=== PATIENT | female | born 2000 | race American Indian/Alaskan Native ===

== ENCOUNTER 2021-11-11 20:30 | Outpatient (CLI) | payer SELFPAY ==
[2021-11-11] MEDS ORDERED: LACTATED RINGERS 500 ML IV ONE (20:52)
[2021-11-12 00:07] LABS: Bacteria,Urine 1+ /HPF (Negative); Bilirubin,Urine NEG (Negative); Blood,Urine NEG (Negative); Color,Urine Yellow (Yellow); Mucus,Urine FEW /HPF; Protein,Urine <15 mg/dL mg/dL (Negative); Urobilinogen,Urine < 2.0 mg/dL (<2.0)
[2021-11-12 00:36] VITALS: BP 131/69
== END 2021-11-12 00:07 | disposition home or self-care (01) ==
LOC: TRG 20:30 → APU 20:31 → TRG 11-12 00:07
PROVIDERS: ATTEND Obstetrics & Gynecology Gynecology
DX: O26.893 Other specified pregnancy related conditions, third trimester (principal); R10.30 Lower abdominal pain, unspecified; R10.2 Pelvic and perineal pain; Z3A.34 34 weeks gestation of pregnancy
CPT/HCPCS: 59025; 81001; 96360

== ENCOUNTER 2021-11-28 22:03 | Inpatient (IN) | payer SELFPAY ==
--- NOTE | 2021-11-29 01:05 | Ultrasound Report ---
ULTRASOUND OBSTETRIC LIMITED INDICATION / CLINICAL INFORMATION: Limited care. Clinical Gestational Age (GA) in weeks, days: 37, 2 TECHNIQUE: Transabdominal. COMPARISON: None available. FINDINGS: HEART RATE (beats per minute): 148 AMNIOTIC FLUID INDEX (cm) = 7.8 (normal = 7-24 cm) PRESENTATION: Cephalic. ADDITIONAL FINDINGS: Biparietal Diameter = 9.2 cm = 4 7, 2 weeks, days Head Circumference = 31.1 cm = 34, 5 weeks, days Abdominal Circumference = 31.7 cm = 35, 4 weeks, days Femur Length = 6.3 cm = 32, 5 weeks, days Average Ultrasound Age (AUA) = 35, 1 weeks, days Estimated weight 2550 g. IMPRESSION: 1. Single living fetus with estimated gestational age of 35 weeks 1 day. Estimated weight 2550 g. Signer Name: Charanjit Boswell II, MD Signed: 11/29/2021 1:01 AM Workstation Name: [id number]
[2021-11-29] MEDS ORDERED: TERBUTALINE 1 MG/1 ML INJ SUB-Q PRN (03:28)
[2021-11-29] MEDS ORDERED: METHYLERGONOVINE MALEATE 0.2 MG/ML VIAL IM PRN (03:28)
[2021-11-29] MEDS ORDERED: CARBOPROST TROMETHAMINE 250 MCG/1 ML INJ IM PRN (03:28)
[2021-11-29] MEDS ORDERED: OXYTOCIN 10 UNIT/1 ML INJ IM PRN (03:28)
[2021-11-29] MEDS ORDERED: BUTORPHANOL 2 MG/1 ML INJ IV PRN (03:28)
[2021-11-29] MEDS ORDERED: ACETAMINOPHEN 325 MG TAB PO PRN (03:28)
[2021-11-29] MEDS ORDERED: LOPERAMIDE 2 MG CAP PO PRN (03:28)
[2021-11-29] MEDS ORDERED: MINERAL OIL 30 ML ORAL LIQD PO PRN (03:28)
[2021-11-29] MEDS ORDERED: ePHEDrine SULFATE 50 MG/1 ML INJ IV PRN (03:28)
--- NOTE | 2021-11-29 03:46 | History and Physical Report ---
History of Present Illness Date of examination: 11/28/21 Date of admission: 12/26/2021 Chief complaint: Contractions History of present illness: 21 y/o at 37-3/7 weeks presents to OBT reporting irregular CTX. No VB or LOF. Good FM. She obtained care in [facility], and she arrived in [place] recently. She has a digital copy of her records. In OBT, SVE was 0.5 cm dilated. However, OB US revealed EFW in the 8th %-ile. As such, there was IUGR. She is admitted for IOL secondary to IUGR. Past History Past Medical History: no pertinent history Past Surgical History: no surgical history Family/Genetic History: none Social history: no significant social history - Obstetrical History Expected Date of Delivery: 12/16/21 Actual Gestation: 37 Week(s) 4 Day(s) : 1 Para: 0 Medications and Allergies Allergies Allergy/AdvReac Type Severity Reaction Status Date / Time No Known Allergies Allergy Verified 11/11/21 20:51 Home Medications Medication Instructions Recorded Confirmed Last Taken Type No Known Home Medications [No 11/29/21 11/29/21 Unknown History Reported Home Medications] Active Meds: Active Medications Acetaminophen (Acetaminophen 325 Mg Tab) 650 mg PO Q4H PRN PRN Reason: Pain, Mild (1-3) Butorphanol Tartrate (Butorphanol 2 Mg/1 Ml Inj) 1 mg IV Q2H PRN PRN Reason: Pain, Moderate(4-6) LABOR PAIN Carboprost Tromethamine (Carboprost Tromethamine 250 Mcg/1 Ml Inj) 250 mcg IM ONCE PRN PRN Reason: Uterine Bleeding Ephedrine Sulfate (Ephedrine Sulfate 50 Mg/1 Ml Inj) 10 mg IV Q2M PRN PRN Reason: Hypotension Fentanyl (Fentanyl 100 Mcg/2 Ml Inj) 100 mcg IV Q2H PRN PRN Reason: Pain,Severe (7-10) LABOR PAIN Lactated Ringer's (Lactated Ringers) 1,000 mls @ 125 mls/hr IV DIRECT KEVIN Loperamide HCl (Loperamide 2 Mg Cap) 2 mg PO ONCE PRN PRN Reason: give with Hemabate Methylergonovine Maleate (Methylergonovine Maleate 0.2 Mg/Ml Vial) 0.2 mg IM ON CE PRN PRN Reason: Uterine Bleeding Mineral Oil (Mineral Oil 30 Ml Oral Liqd) 30 ml PO QHS PRN PRN Reason: Constipation Misoprostol (Misoprostol 25 Mcg Tab) 50 mcg PO Q4H KEVIN Terbutaline Sulfate (Terbutaline 1 Mg/1 Ml Inj) 0.25 mg SUB-Q ONCE PRN PRN Reason: Hyperstimulation/Hypertonicity Review of Systems All systems: negative - Vital Signs Vital signs: Vital Signs Pulse BP 109 H 107/64 11/28/21 22:31 11/28/21 22:31 Temp Pulse Resp BP Pulse Ox 99.4 F 102 H 18 125/66 100 11/29/21 02:08 11/29/21 03:36 11/29/21 02:08 11/29/21 02:16 11/29/21 03:36 - Physical Exam Breasts: Positive: normal Cardiovascular: Regular rate Lungs: Positive: Normal air movement Abdomen: Positive: normal appearance Genitourinary (Female): Positive: normal external genitalia Vulva: both: normal Vagina: Positive: normal moisture Uterus: Positive: enlarged Adnexa: both: normal Anus/Rectum: Positive: normal perianal skin Extremities: Positive: normal Deep Tendon Reflex Grade: Normal +2 - Obstetrical FHR: category 1 Uterine Contraction Monitor Mode: External Cervical Dilatation: 0.5 Cervical Effacement Percentage: 0 station: -3 Uterine Contraction Pattern: Irregular Results All other labs normal. Ultrasound: report reviewed (OB US Limited= SLIUP. Vertex. EFW= 2550 g (8th %- ile). GERMAINE= 7.8 cm.) Assessment and Plan - Patient Problems (1) 37 weeks gestation of Current Visit: Yes Status: Acute Plan to address problem: care was in [facility]. GBS performed today in OBT. Tx w/ PCN if there are any risk factors per CDC MMWR 2010 recommendations. (2) SGA (small for gestational age), , affecting care of mother, antepartum Current Visit: Yes Status: Acute Plan to address problem: EFW= 8th %-ile. Etiology is unknown. Plan is IOL. (3) Encounter for induction of labor Current Visit: Yes Status: Acute Plan to address problem: IOL with Cook catheter +/- Cytotec.
[2021-11-29 03:57] LABS: Hematocrit 32.6 % (30.3-42.9); Hemoglobin 10.6 gm/dl (10.1-14.3); Mean Corpuscular HGB Conc 32 % (30-34); Mean Corpuscular Volume 80 fl (79-97); Platelet Count 370 K/mm3 (140-440); Red Cell Distribution Width 13.9 % (13.2-15.2)
[2021-11-29] MEDS: miSOPROStol 25 MCG TAB PO SCH ×2 (04:04→10:07)
[2021-11-29] MEDS: LACTATED RINGERS 1,000 ML IV SCH ×2 (08:02→20:42)
[2021-11-29] MEDS: fentaNYL 100 MCG/2 ML INJ IV PRN ×2 (08:26→21:33)
--- NOTE | 2021-11-29 10:32 | Event Note ---
Date: 11/29/21 MACO 12/17/21 by 10 week US done in [facility] Pt presented with contractions last night: cervix unfavorable for IOL, pt not in spontaneous labor US put EFW @8% In the third trimester US EFW can be +/- 2-3 weeks dates discrepancy Will remove Cook's Catheter US/BPP/GERMAINE ordered with Doppler studies. I find no indication for OB intervention at this time- Will reevaluate after all imaging results. Maternal/ well being reassuring overall. NO obvious maternal underlying condition to explain IUGR Continue to monitor Princess Parrish MD
--- NOTE | 2021-11-29 10:46 | Event Note ---
Date: 11/29/21 cervix 4-5 cm after removal of Cook's Catheter pt has received multiple dosed of cytotec will plan for US to confirm placental presentation and continue IOL per Dr Barragan's initial plan of care. Princess Parrish MD
--- NOTE | 2021-11-29 10:49 | Event Note ---
Date: 11/29/21 Cooks balloon deflated and removed. SVE 4.5/50/-4. Small amount of bloody show noted. US ordered for location of placenta. Consulted with Dr. Parrish re: this patient.
--- NOTE | 2021-11-29 11:49 | Ultrasound Report ---
ULTRASOUND OBSTETRIC LIMITED INDICATION / CLINICAL INFORMATION: Location of placenta. TECHNIQUE: Transabdominal ultrasound imaging. COMPARISON: None available. FINDINGS: HEART RATE (beats per minute): 145 AMNIOTIC FLUID INDEX (cm) = not measured PRESENTATION: Cephalic. ADDITIONAL FINDINGS: The placenta is fundal, grade 1. No subplacental collection. IMPRESSION: Fundal placenta, grade 1. Signer Name: José Miguel Schwarz Jr, MD Signed: 11/29/2021 11:44 AM Workstation Name: [id number]
[2021-11-29] MEDS ORDERED: AMPICILLIN/NS 2 GM/100 ML 2 GM/100 ML BAG IV ONE (13:00)
--- NOTE | 2021-11-29 16:37 | Event Note ---
Date: 11/29/21 SVE /-3
[2021-11-29] MEDS ORDERED: OXYTOCIN DRIP 30 UNITS/500 ML BAG IV SCH (17:00)
[2021-11-29] MEDS: AMPICILLIN/NS 1 GM/50 ML 1 GM/50 ML BAG IV SCH ×2 (19:17→21:26)
--- NOTE | 2021-11-29 20:01 | Event Note ---
Date: 11/29/21 Dr. Parrish came and checked patient and states cervix is unchanged; Dr. Parrish orders to stop Pitocin and allow patient to eat and shower. She recommends cytotec when contractions have resolved.
--- NOTE | 2021-11-29 20:03 | Progress Note ---
Subjective - Subjective Date of service: 11/29/21 Interval history: comfortable at bedside limited interaction, blunted affect Attempted AROM(pt discomfort a challenge): cervix 4cm/long/-4 unfavorable cervix, dc pitocin with plan for cytotoec encourage early epidural: will plan AROM when more comfortable. FHT Cat 1 Maternal/ well being reassuring at bedside Princess Parrish MD Objective - Vital Signs Vital Signs: Vital Signs - 12hr 11/29/21 11/29/21 11/29/21 08:00 08:05 08:10 Temperature Pulse Rate 104 H 108 H 104 H Respiratory Rate Blood Pressure Blood Pressure [Right] O2 Sat by Pulse 100 98 99 Oximetry O2 Sat by Pulse Oximetry [ Bilateral Throughout] O2 Sat by Pulse Oximetry [ Throughout] 11/29/21 11/29/21 11/29/21 08:15 08:20 08:25 Temperature Pulse Rate 101 H 98 H 103 H Respiratory Rate Blood Pressure Blood Pressure [Right] O2 Sat by Pulse 99 98 100 Oximetry O2 Sat by Pulse Oximetry [ Bilateral Throughout] O2 Sat by Pulse Oximetry [ Throughout] 11/29/21 11/29/21 11/29/21 08:26 08:30 08:35 Temperature Pulse Rate 104 H 101 H Respiratory 16 Rate Blood Pressure Blood Pressure [Right] O2 Sat by Pulse 98 97 Oximetry O2 Sat by Pulse Oximetry [ Bilateral Throughout] O2 Sat by Pulse Oximetry [ Throughout] 11/29/21 11/29/21 11/29/21 08:40 08:45 08:50 Temperature Pulse Rate 109 H 101 H 104 H Respiratory Rate Blood Pressure Blood Pressure [Right] O2 Sat by Pulse 99 99 98 Oximetry O2 Sat by Pulse Oximetry [ Bilateral Throughout] O2 Sat by Pulse Oximetry [ Throughout] 11/29/21 11/29/21 11/29/21 08:55 09:00 09:05 Temperature Pulse Rate 103 H 104 H 107 H Respiratory Rate Blood Pressure Blood Pressure [Right] O2 Sat by Pulse 98 99 98 Oximetry O2 Sat by Pulse Oximetry [ Bilateral Throughout] O2 Sat by Pulse Oximetry [ Throughout] 11/29/21 11/29/21 11/29/21 09:10 09:15 09:20 Temperature Pulse Rate 106 H 104 H 107 H Respiratory Rate Blood Pressure Blood Pressure [Right] O2 Sat by Pulse 98 99 97 Oximetry O2 Sat by Pulse Oximetry [ Bilateral Throughout] O2 Sat by Pulse Oximetry [ Throughout] 11/29/21 11/29/21 11/29/21 09:25 09:30 09:35 Temperature Pulse Rate 103 H 102 H 105 H Respiratory Rate Blood Pressure Blood Pressure [Right] O2 Sat by Pulse 99 97 98 Oximetry O2 Sat by Pulse Oximetry [ Bilateral Throughout] O2 Sat by Pulse Oximetry [ Throughout] 11/29/21 11/29/21 11/29/21 09:40 09:45 09:50 Temperature Pulse Rate 104 H 105 H 105 H Respiratory Rate Blood Pressure Blood Pressure [Right] O2 Sat by Pulse 98 98 98 Oximetry O2 Sat by Pulse Oximetry [ Bilateral Throughout] O2 Sat by Pulse Oximetry [ Throughout] 11/29/21 11/29/21 11/29/21 09:55 10:00 10:05 Temperature Pulse Rate 109 H 108 H 109 H Respiratory Rate Blood Pressure Blood Pressure [Right] O2 Sat by Pulse 98 98 98 Oximetry O2 Sat by Pulse Oximetry [ Bilateral Throughout] O2 Sat by Pulse Oximetry [ Throughout] 11/29/21 11/29/21 11/29/21 10:10 10:15 10:20 Temperature Pulse Rate 108 H 105 H 106 H Respiratory Rate Blood Pressure Blood Pressure [Right] O2 Sat by Pulse 99 98 99 Oximetry O2 Sat by Pulse Oximetry [ Bilateral Throughout] O2 Sat by Pulse Oximetry [ Throughout] 11/29/21 11/29/21 11/29/21 10:25 10:30 10:35 Temperature Pulse Rate 106 H 103 H 99 H Respiratory Rate Blood Pressure Blood Pressure [Right] O2 Sat by Pulse 99 99 100 Oximetry O2 Sat by Pulse Oximetry [ Bilateral Throughout] O2 Sat by Pulse Oximetry [ Throughout] 11/29/21 11/29/21 11/29/21 10:44 10:49 10:54 Temperature Pulse Rate 109 H 101 H 102 H Respiratory Rate Blood Pressure Blood Pressure [Right] O2 Sat by Pulse 97 99 99 Oximetry O2 Sat by Pulse Oximetry [ Bilateral Throughout] O2 Sat by Pulse Oximetry [ Throughout] 11/29/21 11/29/21 11/29/21 10:59 11:04 11:09 Temperature Pulse Rate 104 H 105 H 109 H Respiratory Rate Blood Pressure Blood Pressure [Right] O2 Sat by Pulse 100 99 99 Oximetry O2 Sat by Pulse Oximetry [ Bilateral Throughout] O2 Sat by Pulse Oximetry [ Throughout] 11/29/21 11/29/21 11/29/21 11:14 11:19 11:24 Temperature Pulse Rate 103 H 98 H 104 H Respiratory Rate Blood Pressure Blood Pressure [Right] O2 Sat by Pulse 100 99 100 Oximetry O2 Sat by Pulse Oximetry [ Bilateral Throughout] O2 Sat by Pulse Oximetry [ Throughout] 11/29/21 11/29/21 11/29/21 11:59 12:04 12:09 Temperature Pulse Rate 109 H 102 H 101 H Respiratory Rate Blood Pressure Blood Pressure [Right] O2 Sat by Pulse 99 100 99 Oximetry O2 Sat by Pulse Oximetry [ Bilateral Throughout] O2 Sat by Pulse Oximetry [ Throughout] 11/29/21 11/29/21 11/29/21 12:14 12:19 12:24 Temperature Pulse Rate 104 H 100 H 99 H Respiratory Rate Blood Pressure Blood Pressure [Right] O2 Sat by Pulse 99 98 98 Oximetry O2 Sat by Pulse Oximetry [ Bilateral Throughout] O2 Sat by Pulse Oximetry [ Throughout] 11/29/21 11/29/21 11/29/21 12:29 12:34 12:39 Temperature Pulse Rate 101 H 102 H 103 H Respiratory Rate Blood Pressure Blood Pressure [Right] O2 Sat by Pulse 98 97 98 Oximetry O2 Sat by Pulse Oximetry [ Bilateral Throughout] O2 Sat by Pulse Oximetry [ Throughout] 11/29/21 11/29/21 11/29/21 12:44 12:49 12:54 Temperature Pulse Rate 109 H 106 H 109 H Respiratory Rate Blood Pressure Blood Pressure [Right] O2 Sat by Pulse 98 98 98 Oximetry O2 Sat by Pulse Oximetry [ Bilateral Throughout] O2 Sat by Pulse Oximetry [ Throughout] 11/29/21 11/29/21 11/29/21 12:59 13:04 13:09 Temperature Pulse Rate 105 H 104 H 114 H Respiratory Rate Blood Pressure Blood Pressure [Right] O2 Sat by Pulse 99 100 99 Oximetry O2 Sat by Pulse Oximetry [ Bilateral Throughout] O2 Sat by Pulse Oximetry [ Throughout] 11/29/21 11/29/21 11/29/21 13:14 13:19 13:24 Temperature Pulse Rate 101 H 104 H 105 H Respiratory Rate Blood Pressure Blood Pressure [Right] O2 Sat by Pulse 99 97 98 Oximetry O2 Sat by Pulse Oximetry [ Bilateral Throughout] O2 Sat by Pulse Oximetry [ Throughout] 11/29/21 11/29/21 11/29/21 13:29 13:34 13:39 Temperature Pulse Rate 108 H 98 H 96 H Respiratory Rate Blood Pressure Blood Pressure [Right] O2 Sat by Pulse 100 100 100 Oximetry O2 Sat by Pulse Oximetry [ Bilateral Throughout] O2 Sat by Pulse Oximetry [ Throughout] 11/29/21 11/29/21 11/29/21 13:40 13:44 13:49 Temperature Pulse Rate 92 H 102 H 102 H Respiratory Rate Blood Pressure 131/62 Blood Pressure [Right] O2 Sat by Pulse 99 100 Oximetry O2 Sat by Pulse Oximetry [ Bilateral Throughout] O2 Sat by Pulse Oximetry [ Throughout] 11/29/21 11/29/21 11/29/21 13:54 13:59 14:04 Temperature Pulse Rate 104 H 105 H 101 H Respiratory Rate Blood Pressure Blood Pressure [Right] O2 Sat by Pulse 99 100 98 Oximetry O2 Sat by Pulse Oximetry [ Bilateral Throughout] O2 Sat by Pulse Oximetry [ Throughout] 11/29/21 11/29/21 11/29/21 14:09 14:14 14:19 Temperature Pulse Rate 101 H 104 H 103 H Respiratory Rate Blood Pressure Blood Pressure [Right] O2 Sat by Pulse 99 98 98 Oximetry O2 Sat by Pulse Oximetry [ Bilateral Throughout] O2 Sat by Pulse Oximetry [ Throughout] 11/29/21 11/29/21 11/29/21 14:24 14:29 14:34 Temperature Pulse Rate 100 H 100 H 104 H Respiratory Rate Blood Pressure Blood Pressure [Right] O2 Sat by Pulse 100 100 99 Oximetry O2 Sat by Pulse Oximetry [ Bilateral Throughout] O2 Sat by Pulse Oximetry [ Throughout] 11/29/21 11/29/21 11/29/21 14:39 14:44 14:49 Temperature Pulse Rate 102 H 103 H 103 H Respiratory Rate Blood Pressure Blood Pressure [Right] O2 Sat by Pulse 98 99 99 Oximetry O2 Sat by Pulse Oximetry [ Bilateral Throughout] O2 Sat by Pulse Oximetry [ Throughout] 11/29/21 11/29/21 11/29/21 14:54 14:59 15:04 Temperature Pulse Rate 101 H 100 H 99 H Respiratory Rate Blood Pressure Blood Pressure [Right] O2 Sat by Pulse 99 100 100 Oximetry O2 Sat by Pulse Oximetry [ Bilateral Throughout] O2 Sat by Pulse Oximetry [ Throughout] 11/29/21 11/29/21 11/29/21 15:09 15:14 15:19 Temperature Pulse Rate 101 H 101 H 102 H Respiratory Rate Blood Pressure Blood Pressure [Right] O2 Sat by Pulse 99 99 100 Oximetry O2 Sat by Pulse Oximetry [ Bilateral Throughout] O2 Sat by Pulse Oximetry [ Throughout] 11/29/21 11/29/21 11/29/21 15:24 15:29 15:34 Temperature Pulse Rate 99 H 98 H 97 H Respiratory Rate Blood Pressure Blood Pressure [Right] O2 Sat by Pulse 97 99 99 Oximetry O2 Sat by Pulse Oximetry [ Bilateral Throughout] O2 Sat by Pulse Oximetry [ Throughout] 11/29/21 11/29/21 11/29/21 15:39 15:44 15:49 Temperature Pulse Rate 93 H 93 H 98 H Respiratory Rate Blood Pressure Blood Pressure [Right] O2 Sat by Pulse 100 100 100 Oximetry O2 Sat by Pulse Oximetry [ Bilateral Throughout] O2 Sat by Pulse Oximetry [ Throughout] 11/29/21 11/29/21 11/29/21 15:54 15:59 16:04 Temperature Pulse Rate 94 H 99 H 91 H Respiratory Rate Blood Pressure Blood Pressure [Right] O2 Sat by Pulse 100 100 99 Oximetry O2 Sat by Pulse Oximetry [ Bilateral Throughout] O2 Sat by Pulse Oximetry [ Throughout] 11/29/21 11/29/21 11/29/21 16:09 16:14 16:19 Temperature Pulse Rate 98 H 98 H 101 H Respiratory Rate Blood Pressure Blood Pressure [Right] O2 Sat by Pulse 100 99 98 Oximetry O2 Sat by Pulse Oximetry [ Bilateral Throughout] O2 Sat by Pulse Oximetry [ Throughout] 11/29/21 11/29/21 11/29/21 16:24 16:29 16:34 Temperature Pulse Rate 97 H 98 H 100 H Respiratory Rate Blood Pressure Blood Pressure [Right] O2 Sat by Pulse 100 100 99 Oximetry O2 Sat by Pulse Oximetry [ Bilateral Throughout] O2 Sat by Pulse Oximetry [ Throughout] 11/29/21 11/29/21 11/29/21 16:39 16:44 16:49 Temperature Pulse Rate 101 H 102 H 100 H Respiratory Rate Blood Pressure Blood Pressure [Right] O2 Sat by Pulse 99 98 99 Oximetry O2 Sat by Pulse Oximetry [ Bilateral Throughout] O2 Sat by Pulse Oximetry [ Throughout] 11/29/21 11/29/21 11/29/21 16:54 16:59 17:04 Temperature Pulse Rate 106 H 107 H 104 H Respiratory Rate Blood Pressure 105/56 Blood Pressure [Right] O2 Sat by Pulse 99 99 99 Oximetry O2 Sat by Pulse Oximetry [ Bilateral Throughout] O2 Sat by Pulse Oximetry [ Throughout] 11/29/21 11/29/21 11/29/21 17:09 17:14 17:19 Temperature Pulse Rate 102 H 106 H 103 H Respiratory Rate Blood Pressure Blood Pressure [Right] O2 Sat by Pulse 98 99 99 Oximetry O2 Sat by Pulse Oximetry [ Bilateral Throughout] O2 Sat by Pulse Oximetry [ Throughout] 11/29/21 11/29/21 11/29/21 17:24 17:29 17:34 Temperature Pulse Rate 103 H 104 H 111 H Respiratory Rate Blood Pressure 107/56 Blood Pressure [Right] O2 Sat by Pulse 99 99 99 Oximetry O2 Sat by Pulse Oximetry [ Bilateral Throughout] O2 Sat by Pulse Oximetry [ Throughout] 11/29/21 11/29/21 11/29/21 17:39 17:44 17:49 Temperature Pulse Rate 107 H 105 H 109 H Respiratory Rate Blood Pressure Blood Pressure [Right] O2 Sat by Pulse 99 99 100 Oximetry O2 Sat by Pulse Oximetry [ Bilateral Throughout] O2 Sat by Pulse Oximetry [ Throughout] 11/29/21 11/29/21 11/29/21 17:54 17:59 18:04 Temperature Pulse Rate 110 H 107 H 110 H Respiratory Rate Blood Pressure 127/78 Blood Pressure [Right] O2 Sat by Pulse 99 100 99 Oximetry O2 Sat by Pulse Oximetry [ Bilateral Throughout] O2 Sat by Pulse Oximetry [ Throughout] 11/29/21 11/29/21 11/29/21 18:09 18:14 18:19 Temperature Pulse Rate 101 H 104 H 105 H Respiratory Rate Blood Pressure Blood Pressure [Right] O2 Sat by Pulse 99 100 99 Oximetry O2 Sat by Pulse Oximetry [ Bilateral Throughout] O2 Sat by Pulse Oximetry [ Throughout] 11/29/21 11/29/21 11/29/21 18:24 18:29 18:59 Temperature Pulse Rate 104 H 104 H 105 H Respiratory Rate Blood Pressure 107/57 Blood Pressure [Right] O2 Sat by Pulse 99 99 98 Oximetry O2 Sat by Pulse Oximetry [ Bilateral Throughout] O2 Sat by Pulse Oximetry [ Throughout] 11/29/21 11/29/21 11/29/21 19:04 19:07 19:09 Temperature 97.7 F Pulse Rate 94 H 97 H 96 H Respiratory 17 Rate Blood Pressure Blood Pressure 110/66 [Right] O2 Sat by Pulse 100 100 99 Oximetry O2 Sat by Pulse 99 Oximetry [ Bilateral Throughout] O2 Sat by Pulse 99 Oximetry [ Throughout] 11/29/21 11/29/21 11/29/21 19:11 19:14 19:19 Temperature Pulse Rate 94 H 93 H 95 H Respiratory Rate Blood Pressure 110/66 Blood Pressure [Right] O2 Sat by Pulse 100 100 Oximetry O2 Sat by Pulse Oximetry [ Bilateral Throughout] O2 Sat by Pulse Oximetry [ Throughout] 11/29/21 11/29/21 11/29/21 19:24 19:29 19:34 Temperature Pulse Rate 98 H 99 H 100 H Respiratory Rate Blood Pressure 103/65 Blood Pressure [Right] O2 Sat by Pulse 100 100 100 Oximetry O2 Sat by Pulse Oximetry [ Bilateral Throughout] O2 Sat by Pulse Oximetry [ Throughout] 11/29/21 11/29/21 11/29/21 19:39 19:44 19:49 Temperature Pulse Rate 101 H 102 H 100 H Respiratory Rate Blood Pressure Blood Pressure [Right] O2 Sat by Pulse 100 100 100 Oximetry O2 Sat by Pulse Oximetry [ Bilateral Throughout] O2 Sat by Pulse Oximetry [ Throughout] 11/29/21 19:54 Temperature Pulse Rate 98 H Respiratory Rate Blood Pressure Blood Pressure [Right] O2 Sat by Pulse 100 Oximetry O2 Sat by Pulse Oximetry [ Bilateral Throughout] O2 Sat by Pulse Oximetry [ Throughout] - Labs Labs: Abnormal Labs 11/29/21 02:30 MCH 26 L Laboratory Results - last 24 hr 11/29/21 11/29/21 11/29/21 02:30 02:30 09:15 WBC 9.7 RBC 4.10 Hgb 10.6 Hct 32.6 MCV 80 MCH 26 L MCHC 32 RDW 13.9 Plt Count 370 SARS-CoV-2 (PCR) Negative Blood Type O POSITIVE Antibody Screen Negative
[2021-11-30] MEDS: AMPICILLIN/NS 1 GM/50 ML 1 GM/50 ML BAG IV SCH ×2 (01:32→05:40)
[2021-11-30] MEDS: miSOPROStol 25 MCG TAB PO SCH ×2 (03:08→03:17)
[2021-11-30 05:45] LABS: Bacteria,Urine 2+ /HPF (Negative); Bilirubin,Urine NEG (Negative); Blood,Urine SM (Negative); Color,Urine Straw (Yellow); Protein,Urine <15 mg/dL mg/dL (Negative); Urobilinogen,Urine < 2.0 mg/dL (<2.0)
[2021-11-30] MEDS: LACTATED RINGERS 1,000 ML IV SCH (06:16)
--- NOTE | 2021-11-30 09:23 | Progress Note ---
Subjective - Subjective Date of service: 11/30/21 Interval history: FHT Cat 1 TOCO: 2-3 minutes hungry, wants to eat plan for breakfast and the oxytocin per protocol Princess Parrish MD Objective - Vital Signs Vital Signs: Vital Signs - 12hr 11/29/21 11/29/21 11/29/21 21:22 21:27 21:32 Temperature Pulse Rate 101 H 103 H 96 H Respiratory Rate Blood Pressure O2 Sat by Pulse 99 100 100 Oximetry O2 Sat by Pulse Oximetry [ Bilateral Throughout] O2 Sat by Pulse Oximetry [ Throughout] 11/29/21 11/29/21 11/29/21 21:37 21:42 21:47 Temperature Pulse Rate 101 H 94 H 92 H Respiratory Rate Blood Pressure O2 Sat by Pulse 98 98 98 Oximetry O2 Sat by Pulse Oximetry [ Bilateral Throughout] O2 Sat by Pulse Oximetry [ Throughout] 11/29/21 11/29/21 11/29/21 21:52 21:57 22:02 Temperature Pulse Rate 107 H 93 H 95 H Respiratory Rate Blood Pressure O2 Sat by Pulse 99 98 98 Oximetry O2 Sat by Pulse Oximetry [ Bilateral Throughout] O2 Sat by Pulse Oximetry [ Throughout] 11/29/21 11/29/21 11/29/21 22:07 22:12 22:17 Temperature Pulse Rate 94 H 95 H 98 H Respiratory Rate Blood Pressure O2 Sat by Pulse 97 98 98 Oximetry O2 Sat by Pulse Oximetry [ Bilateral Throughout] O2 Sat by Pulse Oximetry [ Throughout] 11/29/21 11/29/21 11/29/21 22:22 22:27 22:32 Temperature Pulse Rate 96 H 95 H 97 H Respiratory Rate Blood Pressure O2 Sat by Pulse 98 98 99 Oximetry O2 Sat by Pulse Oximetry [ Bilateral Throughout] O2 Sat by Pulse Oximetry [ Throughout] 11/29/21 11/29/21 11/29/21 22:37 22:42 22:47 Temperature Pulse Rate 99 H 115 H 96 H Respiratory Rate Blood Pressure O2 Sat by Pulse 99 99 98 Oximetry O2 Sat by Pulse Oximetry [ Bilateral Throughout] O2 Sat by Pulse Oximetry [ Throughout] 11/29/21 11/29/21 11/29/21 22:52 22:57 23:02 Temperature Pulse Rate 98 H 96 H 110 H Respiratory Rate Blood Pressure O2 Sat by Pulse 97 98 99 Oximetry O2 Sat by Pulse Oximetry [ Bilateral Throughout] O2 Sat by Pulse Oximetry [ Throughout] 11/29/21 11/29/21 11/29/21 23:07 23:12 23:13 Temperature 98.3 F Pulse Rate 96 H 99 H Respiratory 17 Rate Blood Pressure 115/55 O2 Sat by Pulse 99 99 Oximetry O2 Sat by Pulse Oximetry [ Bilateral Throughout] O2 Sat by Pulse Oximetry [ Throughout] 11/29/21 11/29/21 11/29/21 23:17 23:22 23:27 Temperature Pulse Rate 95 H 95 H 95 H Respiratory Rate Blood Pressure O2 Sat by Pulse 98 99 98 Oximetry O2 Sat by Pulse Oximetry [ Bilateral Throughout] O2 Sat by Pulse Oximetry [ Throughout] 11/29/21 11/29/21 11/29/21 23:32 23:37 23:42 Temperature Pulse Rate 95 H 94 H 96 H Respiratory Rate Blood Pressure O2 Sat by Pulse 98 99 99 Oximetry O2 Sat by Pulse Oximetry [ Bilateral Throughout] O2 Sat by Pulse Oximetry [ Throughout] 11/29/21 11/29/21 11/29/21 23:47 23:52 23:57 Temperature Pulse Rate 95 H 97 H 98 H Respiratory Rate Blood Pressure O2 Sat by Pulse 99 100 99 Oximetry O2 Sat by Pulse Oximetry [ Bilateral Throughout] O2 Sat by Pulse Oximetry [ Throughout] 11/30/21 11/30/21 11/30/21 00:02 00:07 00:12 Temperature Pulse Rate 101 H 95 H 100 H Respiratory Rate Blood Pressure O2 Sat by Pulse 100 99 99 Oximetry O2 Sat by Pulse Oximetry [ Bilateral Throughout] O2 Sat by Pulse Oximetry [ Throughout] 11/30/21 11/30/21 11/30/21 00:17 00:22 00:27 Temperature Pulse Rate 100 H 103 H 94 H Respiratory Rate Blood Pressure O2 Sat by Pulse 98 100 99 Oximetry O2 Sat by Pulse Oximetry [ Bilateral Throughout] O2 Sat by Pulse Oximetry [ Throughout] 11/30/21 11/30/21 11/30/21 00:32 00:37 00:42 Temperature Pulse Rate 92 H 93 H 97 H Respiratory Rate Blood Pressure O2 Sat by Pulse 100 98 99 Oximetry O2 Sat by Pulse Oximetry [ Bilateral Throughout] O2 Sat by Pulse Oximetry [ Throughout] 11/30/21 11/30/21 11/30/21 00:47 00:52 00:57 Temperature Pulse Rate 95 H 114 H 95 H Respiratory Rate Blood Pressure O2 Sat by Pulse 99 99 99 Oximetry O2 Sat by Pulse Oximetry [ Bilateral Throughout] O2 Sat by Pulse Oximetry [ Throughout] 11/30/21 11/30/21 11/30/21 01:02 01:07 01:12 Temperature Pulse Rate 89 92 H 95 H Respiratory Rate Blood Pressure O2 Sat by Pulse 98 99 99 Oximetry O2 Sat by Pulse Oximetry [ Bilateral Throughout] O2 Sat by Pulse Oximetry [ Throughout] 11/30/21 11/30/21 11/30/21 01:17 01:22 01:27 Temperature Pulse Rate 96 H 96 H 97 H Respiratory Rate Blood Pressure O2 Sat by Pulse 99 98 99 Oximetry O2 Sat by Pulse Oximetry [ Bilateral Throughout] O2 Sat by Pulse Oximetry [ Throughout] 11/30/21 11/30/21 11/30/21 01:32 01:37 01:42 Temperature Pulse Rate 94 H 98 H 97 H Respiratory Rate Blood Pressure O2 Sat by Pulse 99 99 99 Oximetry O2 Sat by Pulse Oximetry [ Bilateral Throughout] O2 Sat by Pulse Oximetry [ Throughout] 11/30/21 11/30/21 11/30/21 01:47 01:52 01:57 Temperature Pulse Rate 98 H 107 H 92 H Respiratory Rate Blood Pressure O2 Sat by Pulse 99 99 99 Oximetry O2 Sat by Pulse Oximetry [ Bilateral Throughout] O2 Sat by Pulse Oximetry [ Throughout] 11/30/21 11/30/21 11/30/21 02:02 02:07 02:12 Temperature Pulse Rate 97 H 96 H 98 H Respiratory Rate Blood Pressure O2 Sat by Pulse 99 99 99 Oximetry O2 Sat by Pulse Oximetry [ Bilateral Throughout] O2 Sat by Pulse Oximetry [ Throughout] 11/30/21 11/30/21 11/30/21 02:17 02:22 02:27 Temperature Pulse Rate 98 H 114 H 99 H Respiratory Rate Blood Pressure O2 Sat by Pulse 98 100 98 Oximetry O2 Sat by Pulse Oximetry [ Bilateral Throughout] O2 Sat by Pulse Oximetry [ Throughout] 11/30/21 11/30/21 11/30/21 02:32 02:37 02:42 Temperature Pulse Rate 101 H 98 H 98 H Respiratory Rate Blood Pressure O2 Sat by Pulse 100 99 99 Oximetry O2 Sat by Pulse Oximetry [ Bilateral Throughout] O2 Sat by Pulse Oximetry [ Throughout] 11/30/21 11/30/21 11/30/21 02:47 02:52 02:57 Temperature Pulse Rate 99 H 101 H 98 H Respiratory Rate Blood Pressure O2 Sat by Pulse 99 99 98 Oximetry O2 Sat by Pulse Oximetry [ Bilateral Throughout] O2 Sat by Pulse Oximetry [ Throughout] 11/30/21 11/30/21 11/30/21 03:02 03:07 03:12 Temperature Pulse Rate 98 H 100 H 93 H Respiratory Rate Blood Pressure O2 Sat by Pulse 98 98 99 Oximetry O2 Sat by Pulse Oximetry [ Bilateral Throughout] O2 Sat by Pulse Oximetry [ Throughout] 11/30/21 11/30/21 11/30/21 03:17 03:18 03:22 Temperature 98.6 F Pulse Rate 108 H 98 H 98 H Respiratory 16 Rate Blood Pressure 136/60 O2 Sat by Pulse 99 98 Oximetry O2 Sat by Pulse Oximetry [ Bilateral Throughout] O2 Sat by Pulse Oximetry [ Throughout] 11/30/21 11/30/21 11/30/21 03:27 03:32 03:37 Temperature Pulse Rate 99 H 98 H 98 H Respiratory Rate Blood Pressure O2 Sat by Pulse 98 99 98 Oximetry O2 Sat by Pulse Oximetry [ Bilateral Throughout] O2 Sat by Pulse Oximetry [ Throughout] 11/30/21 11/30/21 11/30/21 03:42 03:47 03:52 Temperature Pulse Rate 95 H 98 H 97 H Respiratory Rate Blood Pressure O2 Sat by Pulse 97 98 98 Oximetry O2 Sat by Pulse Oximetry [ Bilateral Throughout] O2 Sat by Pulse Oximetry [ Throughout] 11/30/21 11/30/21 11/30/21 03:57 04:02 04:07 Temperature Pulse Rate 97 H 98 H 98 H Respiratory Rate Blood Pressure O2 Sat by Pulse 98 98 98 Oximetry O2 Sat by Pulse Oximetry [ Bilateral Throughout] O2 Sat by Pulse Oximetry [ Throughout] 11/30/21 11/30/21 11/30/21 04:12 04:17 04:22 Temperature Pulse Rate 95 H 101 H 99 H Respiratory Rate Blood Pressure O2 Sat by Pulse 98 98 98 Oximetry O2 Sat by Pulse Oximetry [ Bilateral Throughout] O2 Sat by Pulse Oximetry [ Throughout] 11/30/21 11/30/21 11/30/21 04:27 04:32 04:37 Temperature Pulse Rate 106 H 102 H 92 H Respiratory Rate Blood Pressure O2 Sat by Pulse 97 98 99 Oximetry O2 Sat by Pulse Oximetry [ Bilateral Throughout] O2 Sat by Pulse Oximetry [ Throughout] 11/30/21 11/30/21 11/30/21 04:42 04:47 04:52 Temperature Pulse Rate 101 H 99 H 95 H Respiratory Rate Blood Pressure O2 Sat by Pulse 99 98 98 Oximetry O2 Sat by Pulse Oximetry [ Bilateral Throughout] O2 Sat by Pulse Oximetry [ Throughout] 11/30/21 11/30/21 11/30/21 04:57 05:02 05:07 Temperature Pulse Rate 92 H 99 H 101 H Respiratory Rate Blood Pressure O2 Sat by Pulse 99 98 98 Oximetry O2 Sat by Pulse Oximetry [ Bilateral Throughout] O2 Sat by Pulse Oximetry [ Throughout] 11/30/21 11/30/21 11/30/21 05:12 05:20 05:25 Temperature Pulse Rate 100 H 95 H 89 Respiratory Rate Blood Pressure O2 Sat by Pulse 98 100 98 Oximetry O2 Sat by Pulse Oximetry [ Bilateral Throughout] O2 Sat by Pulse Oximetry [ Throughout] 11/30/21 11/30/21 11/30/21 05:30 05:35 05:40 Temperature Pulse Rate 91 H 98 H 91 H Respiratory Rate Blood Pressure O2 Sat by Pulse 99 100 99 Oximetry O2 Sat by Pulse Oximetry [ Bilateral Throughout] O2 Sat by Pulse Oximetry [ Throughout] 11/30/21 11/30/21 11/30/21 05:45 05:50 05:55 Temperature Pulse Rate 96 H 89 93 H Respiratory Rate Blood Pressure O2 Sat by Pulse 99 99 97 Oximetry O2 Sat by Pulse Oximetry [ Bilateral Throughout] O2 Sat by Pulse Oximetry [ Throughout] 11/30/21 11/30/21 11/30/21 06:00 06:05 06:10 Temperature Pulse Rate 94 H 90 90 Respiratory Rate Blood Pressure O2 Sat by Pulse 99 99 99 Oximetry O2 Sat by Pulse Oximetry [ Bilateral Throughout] O2 Sat by Pulse Oximetry [ Throughout] 11/30/21 11/30/21 11/30/21 06:15 06:20 06:25 Temperature Pulse Rate 101 H 92 H 95 H Respiratory Rate Blood Pressure O2 Sat by Pulse 99 99 99 Oximetry O2 Sat by Pulse Oximetry [ Bilateral Throughout] O2 Sat by Pulse Oximetry [ Throughout] 11/30/21 11/30/21 11/30/21 06:30 06:35 06:40 Temperature Pulse Rate 86 90 96 H Respiratory Rate Blood Pressure O2 Sat by Pulse 99 99 98 Oximetry O2 Sat by Pulse Oximetry [ Bilateral Throughout] O2 Sat by Pulse Oximetry [ Throughout] 11/30/21 11/30/21 11/30/21 06:45 06:50 06:55 Temperature Pulse Rate 92 H 92 H 88 Respiratory Rate Blood Pressure O2 Sat by Pulse 99 99 99 Oximetry O2 Sat by Pulse Oximetry [ Bilateral Throughout] O2 Sat by Pulse Oximetry [ Throughout] 11/30/21 11/30/21 11/30/21 07:00 07:05 07:10 Temperature Pulse Rate 91 H 100 H 88 Respiratory Rate Blood Pressure O2 Sat by Pulse 99 99 99 Oximetry O2 Sat by Pulse Oximetry [ Bilateral Throughout] O2 Sat by Pulse Oximetry [ Throughout] 11/30/21 11/30/21 11/30/21 07:15 07:20 07:25 Temperature Pulse Rate 92 H 97 H 91 H Respiratory Rate Blood Pressure O2 Sat by Pulse 100 100 99 Oximetry O2 Sat by Pulse Oximetry [ Bilateral Throughout] O2 Sat by Pulse Oximetry [ Throughout] 11/30/21 11/30/21 11/30/21 07:30 07:35 07:40 Temperature Pulse Rate 94 H 94 H 95 H Respiratory Rate Blood Pressure O2 Sat by Pulse 100 99 99 Oximetry O2 Sat by Pulse Oximetry [ Bilateral Throughout] O2 Sat by Pulse Oximetry [ Throughout] 11/30/21 11/30/21 11/30/21 07:45 07:50 07:55 Temperature Pulse Rate 97 H 99 H 93 H Respiratory Rate Blood Pressure O2 Sat by Pulse 99 99 98 Oximetry O2 Sat by Pulse Oximetry [ Bilateral Throughout] O2 Sat by Pulse Oximetry [ Throughout] 11/30/21 11/30/21 11/30/21 08:00 08:05 08:10 Temperature 97.8 F Pulse Rate 100 H 98 H 93 H Respiratory Rate Blood Pressure O2 Sat by Pulse 99 99 99 Oximetry O2 Sat by Pulse Oximetry [ Bilateral Throughout] O2 Sat by Pulse Oximetry [ Throughout] 11/30/21 11/30/21 11/30/21 08:15 08:20 08:25 Temperature Pulse Rate 92 H 96 H 97 H Respiratory Rate Blood Pressure O2 Sat by Pulse 100 99 99 Oximetry O2 Sat by Pulse Oximetry [ Bilateral Throughout] O2 Sat by Pulse Oximetry [ Throughout] 11/30/21 11/30/21 11/30/21 08:49 08:51 08:56 Temperature Pulse Rate 100 H 94 H 100 H Respiratory Rate Blood Pressure 121/77 O2 Sat by Pulse 98 99 Oximetry O2 Sat by Pulse Oximetry [ Bilateral Throughout] O2 Sat by Pulse Oximetry [ Throughout] 11/30/21 11/30/21 11/30/21 08:57 09:01 09:06 Temperature Pulse Rate 96 H 99 H Respiratory Rate Blood Pressure O2 Sat by Pulse 99 99 Oximetry O2 Sat by Pulse 99 Oximetry [ Bilateral Throughout] O2 Sat by Pulse 99 Oximetry [ Throughout] 11/30/21 11/30/21 09:11 09:16 Temperature Pulse Rate 95 H 97 H Respiratory Rate Blood Pressure O2 Sat by Pulse 99 98 Oximetry O2 Sat by Pulse Oximetry [ Bilateral Throughout] O2 Sat by Pulse Oximetry [ Throughout] - Labs Labs: Abnormal Labs 11/29/21 02:30 MCH 26 L Laboratory Results - last 24 hr 11/29/21 11/30/21 09:15 05:15 Urine Color Straw Urine Turbidity Clear Urine pH 6.0 Ur Specific Radiant 1.004 Urine Protein <15 mg/dl Urine Glucose (UA) Neg Urine Ketones 80 Urine Blood Sm Urine Nitrite Neg Urine Bilirubin Neg Urine Urobilinogen < 2.0 Ur Leukocyte Esterase Tr Urine WBC (Auto) 3.0 Urine RBC (Auto) 3.0 U Epithel Cells (Auto) 3.0 Urine Bacteria (Auto) 2+ SARS-CoV-2 (PCR) Negative
[2021-11-30 10:52] VITALS: BP 119/76
--- NOTE | 2021-11-30 11:10 | Progress Note ---
Subjective - Subjective Date of service: 11/30/21 Interval history: FHT Cat 1 TOCO: 2-3 minutes no cervical change, cervix remains unfavorable will allow pt to rest, shower and eat If she desires to go home will order BPp/GERMAINE and reschedule IOL Maternal/ well being reassuring overall Princess Parrish MD Objective - Vital Signs Vital Signs: Vital Signs - 12hr 11/29/21 11/29/21 11/29/21 23:12 23:13 23:17 Temperature 98.3 F Pulse Rate 99 H 95 H Respiratory 17 Rate Blood Pressure 115/55 O2 Sat by Pulse 99 98 Oximetry O2 Sat by Pulse Oximetry [ Bilateral Throughout] O2 Sat by Pulse Oximetry [ Throughout] 11/29/21 11/29/21 11/29/21 23:22 23:27 23:32 Temperature Pulse Rate 95 H 95 H 95 H Respiratory Rate Blood Pressure O2 Sat by Pulse 99 98 98 Oximetry O2 Sat by Pulse Oximetry [ Bilateral Throughout] O2 Sat by Pulse Oximetry [ Throughout] 11/29/21 11/29/21 11/29/21 23:37 23:42 23:47 Temperature Pulse Rate 94 H 96 H 95 H Respiratory Rate Blood Pressure O2 Sat by Pulse 99 99 99 Oximetry O2 Sat by Pulse Oximetry [ Bilateral Throughout] O2 Sat by Pulse Oximetry [ Throughout] 11/29/21 11/29/21 11/30/21 23:52 23:57 00:02 Temperature Pulse Rate 97 H 98 H 101 H Respiratory Rate Blood Pressure O2 Sat by Pulse 100 99 100 Oximetry O2 Sat by Pulse Oximetry [ Bilateral Throughout] O2 Sat by Pulse Oximetry [ Throughout] 11/30/21 11/30/21 11/30/21 00:07 00:12 00:17 Temperature Pulse Rate 95 H 100 H 100 H Respiratory Rate Blood Pressure O2 Sat by Pulse 99 99 98 Oximetry O2 Sat by Pulse Oximetry [ Bilateral Throughout] O2 Sat by Pulse Oximetry [ Throughout] 11/30/21 11/30/21 11/30/21 00:22 00:27 00:32 Temperature Pulse Rate 103 H 94 H 92 H Respiratory Rate Blood Pressure O2 Sat by Pulse 100 99 100 Oximetry O2 Sat by Pulse Oximetry [ Bilateral Throughout] O2 Sat by Pulse Oximetry [ Throughout] 11/30/21 11/30/21 11/30/21 00:37 00:42 00:47 Temperature Pulse Rate 93 H 97 H 95 H Respiratory Rate Blood Pressure O2 Sat by Pulse 98 99 99 Oximetry O2 Sat by Pulse Oximetry [ Bilateral Throughout] O2 Sat by Pulse Oximetry [ Throughout] 11/30/21 11/30/21 11/30/21 00:52 00:57 01:02 Temperature Pulse Rate 114 H 95 H 89 Respiratory Rate Blood Pressure O2 Sat by Pulse 99 99 98 Oximetry O2 Sat by Pulse Oximetry [ Bilateral Throughout] O2 Sat by Pulse Oximetry [ Throughout] 11/30/21 11/30/21 11/30/21 01:07 01:12 01:17 Temperature Pulse Rate 92 H 95 H 96 H Respiratory Rate Blood Pressure O2 Sat by Pulse 99 99 99 Oximetry O2 Sat by Pulse Oximetry [ Bilateral Throughout] O2 Sat by Pulse Oximetry [ Throughout] 11/30/21 11/30/21 11/30/21 01:22 01:27 01:32 Temperature Pulse Rate 96 H 97 H 94 H Respiratory Rate Blood Pressure O2 Sat by Pulse 98 99 99 Oximetry O2 Sat by Pulse Oximetry [ Bilateral Throughout] O2 Sat by Pulse Oximetry [ Throughout] 11/30/21 11/30/21 11/30/21 01:37 01:42 01:47 Temperature Pulse Rate 98 H 97 H 98 H Respiratory Rate Blood Pressure O2 Sat by Pulse 99 99 99 Oximetry O2 Sat by Pulse Oximetry [ Bilateral Throughout] O2 Sat by Pulse Oximetry [ Throughout] 11/30/21 11/30/21 11/30/21 01:52 01:57 02:02 Temperature Pulse Rate 107 H 92 H 97 H Respiratory Rate Blood Pressure O2 Sat by Pulse 99 99 99 Oximetry O2 Sat by Pulse Oximetry [ Bilateral Throughout] O2 Sat by Pulse Oximetry [ Throughout] 11/30/21 11/30/21 11/30/21 02:07 02:12 02:17 Temperature Pulse Rate 96 H 98 H 98 H Respiratory Rate Blood Pressure O2 Sat by Pulse 99 99 98 Oximetry O2 Sat by Pulse Oximetry [ Bilateral Throughout] O2 Sat by Pulse Oximetry [ Throughout] 11/30/21 11/30/21 11/30/21 02:22 02:27 02:32 Temperature Pulse Rate 114 H 99 H 101 H Respiratory Rate Blood Pressure O2 Sat by Pulse 100 98 100 Oximetry O2 Sat by Pulse Oximetry [ Bilateral Throughout] O2 Sat by Pulse Oximetry [ Throughout] 11/30/21 11/30/21 11/30/21 02:37 02:42 02:47 Temperature Pulse Rate 98 H 98 H 99 H Respiratory Rate Blood Pressure O2 Sat by Pulse 99 99 99 Oximetry O2 Sat by Pulse Oximetry [ Bilateral Throughout] O2 Sat by Pulse Oximetry [ Throughout] 11/30/21 11/30/21 11/30/21 02:52 02:57 03:02 Temperature Pulse Rate 101 H 98 H 98 H Respiratory Rate Blood Pressure O2 Sat by Pulse 99 98 98 Oximetry O2 Sat by Pulse Oximetry [ Bilateral Throughout] O2 Sat by Pulse Oximetry [ Throughout] 11/30/21 11/30/21 11/30/21 03:07 03:12 03:17 Temperature Pulse Rate 100 H 93 H 108 H Respiratory Rate Blood Pressure O2 Sat by Pulse 98 99 99 Oximetry O2 Sat by Pulse Oximetry [ Bilateral Throughout] O2 Sat by Pulse Oximetry [ Throughout] 11/30/21 11/30/21 11/30/21 03:18 03:22 03:27 Temperature 98.6 F Pulse Rate 98 H 98 H 99 H Respiratory 16 Rate Blood Pressure 136/60 O2 Sat by Pulse 98 98 Oximetry O2 Sat by Pulse Oximetry [ Bilateral Throughout] O2 Sat by Pulse Oximetry [ Throughout] 11/30/21 11/30/21 11/30/21 03:32 03:37 03:42 Temperature Pulse Rate 98 H 98 H 95 H Respiratory Rate Blood Pressure O2 Sat by Pulse 99 98 97 Oximetry O2 Sat by Pulse Oximetry [ Bilateral Throughout] O2 Sat by Pulse Oximetry [ Throughout] 11/30/21 11/30/21 11/30/21 03:47 03:52 03:57 Temperature Pulse Rate 98 H 97 H 97 H Respiratory Rate Blood Pressure O2 Sat by Pulse 98 98 98 Oximetry O2 Sat by Pulse Oximetry [ Bilateral Throughout] O2 Sat by Pulse Oximetry [ Throughout] 11/30/21 11/30/21 11/30/21 04:02 04:07 04:12 Temperature Pulse Rate 98 H 98 H 95 H Respiratory Rate Blood Pressure O2 Sat by Pulse 98 98 98 Oximetry O2 Sat by Pulse Oximetry [ Bilateral Throughout] O2 Sat by Pulse Oximetry [ Throughout] 11/30/21 11/30/21 11/30/21 04:17 04:22 04:27 Temperature Pulse Rate 101 H 99 H 106 H Respiratory Rate Blood Pressure O2 Sat by Pulse 98 98 97 Oximetry O2 Sat by Pulse Oximetry [ Bilateral Throughout] O2 Sat by Pulse Oximetry [ Throughout] 11/30/21 11/30/21 11/30/21 04:32 04:37 04:42 Temperature Pulse Rate 102 H 92 H 101 H Respiratory Rate Blood Pressure O2 Sat by Pulse 98 99 99 Oximetry O2 Sat by Pulse Oximetry [ Bilateral Throughout] O2 Sat by Pulse Oximetry [ Throughout] 11/30/21 11/30/21 11/30/21 04:47 04:52 04:57 Temperature Pulse Rate 99 H 95 H 92 H Respiratory Rate Blood Pressure O2 Sat by Pulse 98 98 99 Oximetry O2 Sat by Pulse Oximetry [ Bilateral Throughout] O2 Sat by Pulse Oximetry [ Throughout] 11/30/21 11/30/21 11/30/21 05:02 05:07 05:12 Temperature Pulse Rate 99 H 101 H 100 H Respiratory Rate Blood Pressure O2 Sat by Pulse 98 98 98 Oximetry O2 Sat by Pulse Oximetry [ Bilateral Throughout] O2 Sat by Pulse Oximetry [ Throughout] 11/30/21 11/30/21 11/30/21 05:20 05:25 05:30 Temperature Pulse Rate 95 H 89 91 H Respiratory Rate Blood Pressure O2 Sat by Pulse 100 98 99 Oximetry O2 Sat by Pulse Oximetry [ Bilateral Throughout] O2 Sat by Pulse Oximetry [ Throughout] 11/30/21 11/30/21 11/30/21 05:35 05:40 05:45 Temperature Pulse Rate 98 H 91 H 96 H Respiratory Rate Blood Pressure O2 Sat by Pulse 100 99 99 Oximetry O2 Sat by Pulse Oximetry [ Bilateral Throughout] O2 Sat by Pulse Oximetry [ Throughout] 11/30/21 11/30/21 11/30/21 05:50 05:55 06:00 Temperature Pulse Rate 89 93 H 94 H Respiratory Rate Blood Pressure O2 Sat by Pulse 99 97 99 Oximetry O2 Sat by Pulse Oximetry [ Bilateral Throughout] O2 Sat by Pulse Oximetry [ Throughout] 11/30/21 11/30/21 11/30/21 06:05 06:10 06:15 Temperature Pulse Rate 90 90 101 H Respiratory Rate Blood Pressure O2 Sat by Pulse 99 99 99 Oximetry O2 Sat by Pulse Oximetry [ Bilateral Throughout] O2 Sat by Pulse Oximetry [ Throughout] 11/30/21 11/30/21 11/30/21 06:20 06:25 06:30 Temperature Pulse Rate 92 H 95 H 86 Respiratory Rate Blood Pressure O2 Sat by Pulse 99 99 99 Oximetry O2 Sat by Pulse Oximetry [ Bilateral Throughout] O2 Sat by Pulse Oximetry [ Throughout] 11/30/21 11/30/21 11/30/21 06:35 06:40 06:45 Temperature Pulse Rate 90 96 H 92 H Respiratory Rate Blood Pressure O2 Sat by Pulse 99 98 99 Oximetry O2 Sat by Pulse Oximetry [ Bilateral Throughout] O2 Sat by Pulse Oximetry [ Throughout] 11/30/21 11/30/21 11/30/21 06:50 06:55 07:00 Temperature Pulse Rate 92 H 88 91 H Respiratory Rate Blood Pressure O2 Sat by Pulse 99 99 99 Oximetry O2 Sat by Pulse Oximetry [ Bilateral Throughout] O2 Sat by Pulse Oximetry [ Throughout] 11/30/21 11/30/21 11/30/21 07:05 07:10 07:15 Temperature Pulse Rate 100 H 88 92 H Respiratory Rate Blood Pressure O2 Sat by Pulse 99 99 100 Oximetry O2 Sat by Pulse Oximetry [ Bilateral Throughout] O2 Sat by Pulse Oximetry [ Throughout] 11/30/21 11/30/21 11/30/21 07:20 07:25 07:30 Temperature Pulse Rate 97 H 91 H 94 H Respiratory Rate Blood Pressure O2 Sat by Pulse 100 99 100 Oximetry O2 Sat by Pulse Oximetry [ Bilateral Throughout] O2 Sat by Pulse Oximetry [ Throughout] 11/30/21 11/30/21 11/30/21 07:35 07:40 07:45 Temperature Pulse Rate 94 H 95 H 97 H Respiratory Rate Blood Pressure O2 Sat by Pulse 99 99 99 Oximetry O2 Sat by Pulse Oximetry [ Bilateral Throughout] O2 Sat by Pulse Oximetry [ Throughout] 11/30/21 11/30/21 11/30/21 07:50 07:55 08:00 Temperature 97.8 F Pulse Rate 99 H 93 H 100 H Respiratory Rate Blood Pressure O2 Sat by Pulse 99 98 99 Oximetry O2 Sat by Pulse Oximetry [ Bilateral Throughout] O2 Sat by Pulse Oximetry [ Throughout] 11/30/21 11/30/21 11/30/21 08:05 08:10 08:15 Temperature Pulse Rate 98 H 93 H 92 H Respiratory Rate Blood Pressure O2 Sat by Pulse 99 99 100 Oximetry O2 Sat by Pulse Oximetry [ Bilateral Throughout] O2 Sat by Pulse Oximetry [ Throughout] 0211/30/21 11/30/21 08:20 08:25 08:49 Temperature Pulse Rate 96 H 97 H 100 H Respiratory Rate Blood Pressure 121/77 O2 Sat by Pulse 99 99 Oximetry O2 Sat by Pulse Oximetry [ Bilateral Throughout] O2 Sat by Pulse Oximetry [ Throughout] 11/30/21 11/30/21 11/30/21 08:51 08:56 08:57 Temperature Pulse Rate 94 H 100 H Respiratory Rate Blood Pressure O2 Sat by Pulse 98 99 Oximetry O2 Sat by Pulse 99 Oximetry [ Bilateral Throughout] O2 Sat by Pulse 99 Oximetry [ Throughout] 11/30/21 11/30/21 11/30/21 09:01 09:06 09:11 Temperature Pulse Rate 96 H 99 H 95 H Respiratory Rate Blood Pressure O2 Sat by Pulse 99 99 99 Oximetry O2 Sat by Pulse Oximetry [ Bilateral Throughout] O2 Sat by Pulse Oximetry [ Throughout] 11/30/21 11/30/21 11/30/21 09:16 09:21 09:26 Temperature Pulse Rate 97 H 99 H 97 H Respiratory Rate Blood Pressure O2 Sat by Pulse 98 99 99 Oximetry O2 Sat by Pulse Oximetry [ Bilateral Throughout] O2 Sat by Pulse Oximetry [ Throughout] 11/30/21 11/30/21 11/30/21 09:31 09:36 09:41 Temperature Pulse Rate 92 H 95 H 95 H Respiratory Rate Blood Pressure O2 Sat by Pulse 99 100 99 Oximetry O2 Sat by Pulse Oximetry [ Bilateral Throughout] O2 Sat by Pulse Oximetry [ Throughout] 11/30/21 11/30/21 11/30/21 09:46 09:50 09:51 Temperature Pulse Rate 94 H 92 H 93 H Respiratory Rate Blood Pressure 115/69 O2 Sat by Pulse 99 98 Oximetry O2 Sat by Pulse Oximetry [ Bilateral Throughout] O2 Sat by Pulse Oximetry [ Throughout] 11/30/21 11/30/21 11/30/21 09:56 10:01 10:06 Temperature Pulse Rate 95 H 93 H 97 H Respiratory Rate Blood Pressure O2 Sat by Pulse 100 99 99 Oximetry O2 Sat by Pulse Oximetry [ Bilateral Throughout] O2 Sat by Pulse Oximetry [ Throughout] 11/30/21 11/30/21 11/30/21 10:11 10:16 10:21 Temperature Pulse Rate 93 H 98 H 94 H Respiratory Rate Blood Pressure O2 Sat by Pulse 100 99 100 Oximetry O2 Sat by Pulse Oximetry [ Bilateral Throughout] O2 Sat by Pulse Oximetry [ Throughout] 11/30/21 11/30/21 11/30/21 10:26 10:31 10:36 Temperature Pulse Rate 94 H 91 H 94 H Respiratory Rate Blood Pressure O2 Sat by Pulse 100 99 100 Oximetry O2 Sat by Pulse Oximetry [ Bilateral Throughout] O2 Sat by Pulse Oximetry [ Throughout] 11/30/21 11/30/21 11/30/21 10:41 10:46 10:50 Temperature Pulse Rate 90 91 H 81 Respiratory Rate Blood Pressure 119/76 O2 Sat by Pulse 99 99 Oximetry O2 Sat by Pulse Oximetry [ Bilateral Throughout] O2 Sat by Pulse Oximetry [ Throughout] 11/30/21 11/30/21 11/30/21 10:51 10:56 11:01 Temperature Pulse Rate 87 96 H 91 H Respiratory Rate Blood Pressure O2 Sat by Pulse 100 99 99 Oximetry O2 Sat by Pulse Oximetry [ Bilateral Throughout] O2 Sat by Pulse Oximetry [ Throughout] 11/30/21 11:06 Temperature Pulse Rate 95 H Respiratory Rate Blood Pressure O2 Sat by Pulse 99 Oximetry O2 Sat by Pulse Oximetry [ Bilateral Throughout] O2 Sat by Pulse Oximetry [ Throughout] - Labs Labs: Abnormal Labs 11/29/21 02:30 MCH 26 L Laboratory Results - last 24 hr 11/30/21 05:15 Urine Color Straw Urine Turbidity Clear Urine pH 6.0 Ur Specific [place] 1.004 Urine Protein <15 mg/dl Urine Glucose (UA) Neg Urine Ketones 80 Urine Blood Sm Urine Nitrite Neg Urine Bilirubin Neg Urine Urobilinogen < 2.0 Ur Leukocyte Esterase Tr Urine WBC (Auto) 3.0 Urine RBC (Auto) 3.0 U Epithel Cells (Auto) 3.0 Urine Bacteria (Auto) 2+
--- NOTE | 2021-11-30 12:20 | Ultrasound Report ---
ULTRASOUND BIOPHYSICAL PROFILE INDICATION: IUGR, BPP/GERMAINE. COMPARISON: OB ultrasound 11/29/2021 FINDINGS: BREATHING MOVEMENT = 2 GROSS BODY MOVEMENT = 2 TONE = 2 QUALITATIVE AMNIOTIC FLUID VOLUME = 2 TOTAL BIOPHYSICAL SCORE = 05/19 AMNIOTIC FLUID INDEX (cm) = 11.3 PRESENTATION: Cephalic. HEART RATE (beats per minute): 147 IMPRESSION: 1. biophysical profile = 05/19 Signer Name: Cristino Ayers MD Signed: 11/30/2021 12:16 PM Workstation Name: [id number]
--- NOTE | 2021-11-30 17:50 | Discharge Summary ---
Providers - Providers Date of Admission: 11/29/21 03:28 Date of discharge: 11/30/21 Attending physician: ESSIE QUINN MD Primary care physician: ESSIE QUINN MD Hospitalization Reason for admission: other (failed iol,DC to home to retry in one week) Discharge diagnosis: other Condition at discharge: Stable Disposition: 01 HOME / SELF CARE / HOMELESS Plan - Provider Discharge Summary Additional instructions: [] Smoking cessation referral if applicable(refer to patient education folder for contact #) [] Refer to [facility]'s [facility] Booklet Call your doctor immediately for: * Fever > 100.5 * Heavy vaginal bleeding ( >1 pad per hour) * Severe persistent headache * Shortness of breath * Reddened, hot, painful area to leg or breast * Drainage or odor from incision. * Keep incision clean and dry at all times and follow doctor's instructions regarding bathing/showering - Follow up plan Follow up: ESSIE QUINN MD [Primary Care Provider] - 7 Days Forms: [facility] Discharge Summary, Warfarin Discharge Instruction, Work/School Excuse Out Patient
--- NOTE | 2021-12-02 06:49 | Ultrasound Report ---
ULTRASOUND BIOPHYSICAL PROFILE INDICATION / CLINICAL INFORMATION: IUGR, BPP/GERMAINE. COMPARISON: 11/30/2021 FINDINGS: BREATHING MOVEMENT = 2 GROSS BODY MOVEMENT = 2 TONE = 2 QUALITATIVE AMNIOTIC FLUID VOLUME = 2 TOTAL BIOPHYSICAL SCORE = 05/19 AMNIOTIC FLUID INDEX (cm) = 11.3 PRESENTATION: Cephalic. HEART RATE (beats per minute): 147 IMPRESSION: 1. biophysical profile = 05/19 Signer Name: Marco Solorio MD Signed: 12/02/2021 6:45 AM Workstation Name: [id number]
== END 2021-11-30 13:00 | disposition home or self-care (01) | DRG 833 ==
LOC: TRG 22:03 → APU 22:06 → LD 11-29 00:50 → TRG 11-29 09:53
PROVIDERS: ADMIT Obstetrics & Gynecology Gynecology; ATTEND Obstetrics & Gynecology Gynecology
PROC: 0U7C7ZZ Dilation of Cervix, Via Natural or Artificial Opening (ICD-10-PCS; principal; 2021-11-29)
DX: O36.5930 Maternal care for other known or suspected poor fetal growth, third trimester, not applicable or unspecified (principal); Z20.822 Contact with and (suspected) exposure to COVID-19; Z3A.37 37 weeks gestation of pregnancy
CPT/HCPCS: 36415; 59025; 76805; 76815; 76816; 76819; 81001; 85027; 86850; 86900; 86901; 87086; 87116; 96360; G0378; J0290; J2590; J3010; J7120; U0003

== ENCOUNTER 2021-12-21 22:18 | Inpatient (IN) | payer SELFPAY ==
[2021-12-22 00:53] LABS: Amphetamine Screen,Urine PRESUMPTIVE NEGATIVE; Benzodiazepines Screen,Urine PRESUMPTIVE NEGATIVE; Cannabinoid Screen,Urine PRESUMPTIVE NEGATIVE; Cocaine Screen,Urine PRESUMPTIVE NEGATIVE; Methadone Screen,Urine PRESUMPTIVE NEGATIVE; Opiate Screen,Urine PRESUMPTIVE NEGATIVE
[2021-12-22 00:59] LABS: Bacteria,Urine 1+ /HPF (Negative); Bilirubin,Urine NEG (Negative); Blood,Urine NEG (Negative); Color,Urine Yellow (Yellow); Protein,Urine <15 mg/dL mg/dL (Negative); RBC,Urine < 1.0 /HPF (0.0-6.0)
[2021-12-22] MEDS ORDERED: AMPICILLIN/NS 2 GM/100 ML 2 GM/100 ML BAG IV ONE (01:02)
[2021-12-22] MEDS ORDERED: CARBOPROST TROMETHAMINE 250 MCG/1 ML INJ IM PRN (01:02)
[2021-12-22] MEDS ORDERED: LOPERAMIDE 2 MG CAP PO PRN (01:02)
[2021-12-22] MEDS ORDERED: METHYLERGONOVINE MALEATE 0.2 MG/ML VIAL IM PRN (01:02)
[2021-12-22] MEDS ORDERED: NALOXONE 0.4 MG/1 ML INJ IV PRN (01:02)
[2021-12-22] MEDS ORDERED: TERBUTALINE 1 MG/1 ML INJ SUB-Q PRN (01:02)
[2021-12-22] MEDS ORDERED: miSOPROStol 200 MCG TAB PR PRN (01:02)
[2021-12-22] MEDS ORDERED: ONDANSETRON 4 MG/2 ML INJ IV PRN (01:02)
[2021-12-22] MEDS ORDERED: PROMETHAZINE 25 MG TAB PO PRN (01:02)
[2021-12-22] MEDS ORDERED: BUTORPHANOL 2 MG/1 ML INJ IV PRN (01:02)
[2021-12-22] MEDS ORDERED: OXYTOCIN 10 UNIT/1 ML INJ IM PRN (01:02)
[2021-12-22] MEDS ORDERED: LIDOCAINE (2%) 20 MG/1 ML VIAL 20 ML MDV INFILTRATI ONE (01:02)
[2021-12-22] MEDS ORDERED: ePHEDrine SULFATE 50 MG/1 ML INJ IV PRN ×2 (01:02→17:26)
[2021-12-22] MEDS ORDERED: MINERAL OIL 30 ML ORAL LIQD PO PRN (01:02)
[2021-12-22] MEDS ORDERED: ACETAMINOPHEN 325 MG TAB PO PRN (01:02)
[2021-12-22 01:04] LABS: Hepatitis C Virus Antibody Non-Reactive (NonReactive)
--- NOTE | 2021-12-22 01:11 | History and Physical Report ---
History of Present Illness Date of examination: 12/22/21 Date of admission: 12/22/2021 Chief complaint: I;m having contractions. History of present illness: Pt is a @ 40.6 wks BY by EDC 12/16/2021 given to her in the [facility]. Who presented to triage with c/o contractions and spotting. She has had limited PNC here in the [facility]. She received PNC in the [facility]. record reviewed from the [facility]. She had about 5 visits before coming to the [facility]. Her last visit was 10/17/2021 @ 32+ wks with a FH of 36. On 11/29/2021 she was admitted to [facility] L&D for IUGR at 37 wks. Her cervix was found to be unchanged and unfavorable and she was discharged home with plans to schedule an IOL. Before scheduled IOL could happen she presented to triage tonight in labor. Past History Past Medical History: no pertinent history Past Surgical History: no surgical history Family/Genetic History: hypertension Social history: no significant social history - Obstetrical History Expected Date of Delivery: 12/16/21 Actual Gestation: 40 Week(s) 6 Day(s) : 1 Para: 0 Hx # Term Pregnancies: 0 Number of Pregnancies: 0 Spontaneous Abortions: 0 Induced : 0 Number of Living Children: 0 Medications and Allergies Allergies Allergy/AdvReac Type Severity Reaction Status Date / Time No Known Allergies Allergy Verified 11/11/21 20:51 Home Medications Medication Instructions Recorded Confirmed Last Taken Type No Known Home Medications [No 11/29/21 11/29/21 Unknown History Reported Home Medications] Review of Systems All systems: negative - Vital Signs Vital signs: Vital Signs Pulse BP 95 H 114/66 12/21/21 22:53 12/21/21 22:53 Temp Pulse Resp BP Pulse Ox 98.2 F 100 H 114/66 100 12/22/21 00:49 12/22/21 00:59 12/21/21 22:53 12/22/21 00:59 - Physical Exam Breasts: Positive: deferred Cardiovascular: Regular rate Lungs: Positive: Normal air movement Abdomen: Positive: normal appearance, soft Genitourinary (Female): Positive: normal external genitalia, normal perenium Vulva: both: normal Vagina: Positive: normal moisture Uterus: Positive: enlarged (40.5 wk gestation.) Extremities: Positive: normal - Obstetrical FHR: category 1 Uterine Contraction Monitor Mode: External Cervical Dilatation: 4 (BBOW felt) Cervical Effacement Percentage: 80 station: -1 Uterine Contraction Pattern: Regular Uterine Tone Measurement Phase: Resting Uterine Contraction Intensity: Moderate Results Result Diagrams: 12/21/21 00:05 All other labs normal. GBS POSITIVE (from last visit on 11/29) labs drawn on admission Assessment and Plan A: 21 y.o. @ 40.6 wks, labor, limited PNC. - Patient Problems (1) Limited care in third trimester Current Visit: Yes Status: Acute Plan to address problem: Case management consult after delivery. (2) Postmaturity , 40-42 weeks gestation Current Visit: Yes Status: Acute Plan to address problem: Admit to labor and delivery. Initiate IV Draw labs and admission labs. Collect a UDS. Continuous EFM to monitor status. Pain management: IV pain medication. Anticipate .
[2021-12-22 01:20] LABS: Basophils % (Auto) 0.2 % (0.0-1.8); Eosinophils # (Auto) 0.1 K/mm3 (0.0-0.4); Eosinophils % (Auto) 0.5 % (0.0-4.3); Hematocrit 35.6 % (30.3-42.9); Hemoglobin 11.4 gm/dl (10.1-14.3); Lymphocytes % (Auto) 18.1 % (13.4-35.0); Mean Corpuscular HGB Conc 32 % (30-34); Mean Corpuscular Volume 81 fl (79-97); Monocytes # (Auto) 0.8 K/mm3 (0.0-0.8); Monocytes % (Auto) 7.6 % (0.0-7.3); Platelet Count 240 K/mm3 (140-440); Red Blood Count 4.41 M/mm3 (3.65-5.03); Red Cell Distribution Width 15.2 % (13.2-15.2)
[2021-12-22] MEDS: LACTATED RINGERS 1,000 ML IV SCH ×3 (01:26→18:24)
[2021-12-22] MEDS ORDERED: OXYTOCIN DRIP 30 UNITS/500 ML BAG IV SCH ×3 (03:00→23:45)
[2021-12-22] MEDS: fentaNYL 100 MCG/2 ML INJ IV PRN ×4 (04:39→14:23)
[2021-12-22] MEDS: AMPICILLIN/NS 1 GM/50 ML 1 GM/50 ML BAG IV SCH ×5 (05:30→21:52)
--- NOTE | 2021-12-22 07:48 | Progress Note ---
Assessment and Plan A: 21 y.o. @ 40.6 wks, active labor. Limited PNC. - Patient Problems (1) Limited care in third trimester Current Visit: Yes Status: Acute Plan to address problem: Case management after delivery. (2) Postmaturity , 40-42 weeks gestation Current Visit: Yes Status: Acute Plan to address problem: Pitocin per protocol. Anticipate . Light stained AROM: NICU at delivery. Subjective - Subjective Date of service: 12/22/21 Principal diagnosis: IUP @ 40.6 wks, active labor, limited PNC Interval history: Pt states that she is feeling some vaginal pressure and pain from her contractions. Would like IV pain medication for pain. Patient reports: new complaints (Vaginal pressure and pain from the contractions. ), movement normal, contractions Objective - Vital Signs Vital Signs: Vital Signs - 12hr 12/21/21 12/21/21 12/21/21 22:53 22:54 22:59 Temperature Pulse Rate 95 H 97 H 96 H Blood Pressure 114/66 O2 Sat by Pulse 98 99 Oximetry 12/21/21 12/21/21 12/21/21 23:04 23:08 23:09 Temperature 98.2 F Pulse Rate 94 H 89 Blood Pressure O2 Sat by Pulse 100 99 Oximetry 12/21/21 12/21/21 12/21/21 23:14 23:19 23:24 Temperature Pulse Rate 105 H 97 H 88 Blood Pressure O2 Sat by Pulse 99 100 100 Oximetry 12/21/21 12/21/21 12/21/21 23:29 23:34 23:39 Temperature Pulse Rate 99 H 93 H 89 Blood Pressure O2 Sat by Pulse 100 100 100 Oximetry 12/21/21 12/21/21 12/21/21 23:44 23:49 23:54 Temperature Pulse Rate 94 H 94 H 95 H Blood Pressure O2 Sat by Pulse 100 99 100 Oximetry 12/21/21 12/22/21 12/22/21 23:59 00:04 00:09 Temperature Pulse Rate 102 H 90 95 H Blood Pressure O2 Sat by Pulse 99 100 99 Oximetry 12/22/21 12/22/21 12/22/21 00:14 00:49 00:59 Temperature 98.2 F Pulse Rate 84 100 H Blood Pressure O2 Sat by Pulse 99 100 Oximetry 12/22/21 12/22/21 12/22/21 01:04 01:09 01:14 Temperature Pulse Rate 100 H 94 H 103 H Blood Pressure O2 Sat by Pulse 100 100 99 Oximetry 12/22/21 12/22/21 12/22/21 01:19 01:24 01:29 Temperature Pulse Rate 101 H 97 H 101 H Blood Pressure O2 Sat by Pulse 100 100 100 Oximetry 12/22/21 12/22/21 12/22/21 01:34 01:39 01:44 Temperature Pulse Rate 94 H 93 H 96 H Blood Pressure O2 Sat by Pulse 100 100 99 Oximetry 12/22/21 12/22/21 12/22/21 01:49 01:54 01:59 Temperature Pulse Rate 101 H 93 H 98 H Blood Pressure O2 Sat by Pulse 100 100 99 Oximetry 12/22/21 12/22/21 12/22/21 03:04 03:09 03:14 Temperature Pulse Rate 103 H 96 H 93 H Blood Pressure O2 Sat by Pulse 99 99 99 Oximetry 12/22/21 12/22/21 12/22/21 03:19 03:24 03:29 Temperature Pulse Rate 91 H 89 93 H Blood Pressure O2 Sat by Pulse 99 100 100 Oximetry 12/22/21 12/22/21 12/22/21 03:34 03:39 03:44 Temperature Pulse Rate 87 95 H 91 H Blood Pressure O2 Sat by Pulse 100 100 99 Oximetry 12/22/21 12/22/21 12/22/21 03:49 03:54 03:59 Temperature Pulse Rate 86 87 83 Blood Pressure O2 Sat by Pulse 100 100 99 Oximetry 12/22/21 12/22/21 12/22/21 04:46 04:51 04:56 Temperature Pulse Rate 92 H 89 93 H Blood Pressure O2 Sat by Pulse 98 99 99 Oximetry 12/22/21 12/22/21 12/22/21 05:01 05:06 05:11 Temperature Pulse Rate 90 91 H 88 Blood Pressure O2 Sat by Pulse 99 99 99 Oximetry 12/22/21 12/22/21 12/22/21 05:16 05:21 05:26 Temperature Pulse Rate 94 H 90 92 H Blood Pressure O2 Sat by Pulse 99 99 99 Oximetry 12/22/21 12/22/21 12/22/21 05:31 05:36 05:41 Temperature Pulse Rate 95 H 84 88 Blood Pressure O2 Sat by Pulse 99 98 97 Oximetry 12/22/21 12/22/21 12/22/21 05:46 05:51 05:56 Temperature Pulse Rate 88 92 H 95 H Blood Pressure O2 Sat by Pulse 97 98 100 Oximetry 12/22/21 12/22/21 12/22/21 06:01 06:06 06:11 Temperature Pulse Rate 93 H 93 H 88 Blood Pressure O2 Sat by Pulse 99 98 99 Oximetry 12/22/21 12/22/21 12/22/21 06:16 06:21 06:26 Temperature Pulse Rate 90 95 H 85 Blood Pressure O2 Sat by Pulse 100 98 99 Oximetry 12/22/21 12/22/21 12/22/21 06:31 06:36 06:41 Temperature Pulse Rate 93 H 90 93 H Blood Pressure O2 Sat by Pulse 98 99 98 Oximetry 12/22/21 12/22/21 12/22/21 06:46 06:51 06:56 Temperature Pulse Rate 86 84 92 H Blood Pressure O2 Sat by Pulse 99 99 98 Oximetry 12/22/21 12/22/21 12/22/21 07:01 07:06 07:11 Temperature Pulse Rate 104 H 86 87 Blood Pressure O2 Sat by Pulse 99 100 98 Oximetry 12/22/21 12/22/21 12/22/21 07:16 07:21 07:26 Temperature Pulse Rate 88 89 92 H Blood Pressure O2 Sat by Pulse 98 98 99 Oximetry 12/22/21 12/22/21 12/22/21 07:31 07:36 07:41 Temperature Pulse Rate 91 H 88 90 Blood Pressure O2 Sat by Pulse 99 100 99 Oximetry - Exam Narrative Exam: AROM for light stained meconium fluid. Breasts: deferred Cardiovascular: Regular rate Lungs: Normal air movement Abdomen: Present: normal appearance, soft Vulva: both: normal Uterus: Present: normal FHR: category 1 Uterine Contraction Monitor Mode: External Cervical Dilatation: 7 (AROM light stained mec fluid) Cervical Effacement Percentage: 90 station: -1 Uterine Contraction Pattern: Regular Uterine Tone Measurement Phase: Resting Uterine Contraction Intensity: Moderate Extremities: normal - Labs Labs: Abnormal Labs 12/21/21 00:05 MCH 26 L [place] % (Auto) 7.6 H Seg Neutrophils % 73.6 H Seg Neutrophils # 8.0 H Laboratory Results - last 24 hr 12/21/21 12/21/21 12/21/21 00:05 00:05 00:05 WBC 10.8 RBC 4.41 Hgb 11.4 Hct 35.6 MCV 81 MCH 26 L MCHC 32 RDW 15.2 Plt Count 240 Lymph % (Auto) 18.1 [place] % (Auto) 7.6 H Eos % (Auto) 0.5 Baso % (Auto) 0.2 Lymph # (Auto) 2.0 [place] # (Auto) 0.8 Eos # (Auto) 0.1 Baso # (Auto) 0.0 Seg Neutrophils % 73.6 H Seg Neutrophils # 8.0 H Urine Color Urine Turbidity Urine pH Ur Specific [place] Urine Protein Urine Glucose (UA) Urine Ketones Urine Blood Urine Nitrite Urine Bilirubin Urine Urobilinogen Ur Leukocyte Esterase Urine WBC (Auto) Urine RBC (Auto) U Epithel Cells (Auto) Urine Bacteria (Auto) Urine Opiates Screen Urine Methadone Screen Ur Barbiturates Screen Ur Phencyclidine Scrn Ur Amphetamines Screen U Benzodiazepines Scrn Urine Cocaine Screen U Marijuana (THC) Screen Drugs of Abuse Note Syphilis IgG/IgM Ab Nonreactive Hep Bs Antigen Non-reactive Hepatitis C Antibody Non-reactive HIV 1&2 Antibody Rapid Non react HIV P24 Antigen Non react Rubella IgG Antibody Immune Blood Type Antibody Screen 12/21/21 12/21/21 12/21/21 00:05 00:23 00:23 WBC RBC Hgb Hct MCV MCH MCHC RDW Plt Count Lymph % (Auto) [place] % (Auto) Eos % (Auto) Baso % (Auto) Lymph # (Auto) [place] # (Auto) Eos # (Auto) Baso # (Auto) Seg Neutrophils % Seg Neutrophils # Urine Color Yellow Urine Turbidity Slightly-cloudy Urine pH 6.0 Ur Specific [place] 1.009 Urine Protein <15 mg/dl Urine Glucose (UA) Neg Urine Ketones Tr Urine Blood Neg Urine Nitrite Neg Urine Bilirubin Neg Urine Urobilinogen 2.0 Ur Leukocyte Esterase Mod Urine WBC (Auto) 5.0 Urine RBC (Auto) < 1.0 U Epithel Cells (Auto) 7.0 Urine Bacteria (Auto) 1+ Urine Opiates Screen Presumptive negative Urine Methadone Screen Presumptive negative Ur Barbiturates Screen Presumptive negative Ur Phencyclidine Scrn Presumptive negative Ur Amphetamines Screen Presumptive negative U Benzodiazepines Scrn Presumptive negative Urine Cocaine Screen Presumptive negative U Marijuana (THC) Screen Presumptive negative Drugs of Abuse Note Disclamer Syphilis IgG/IgM Ab Hep Bs Antigen Hepatitis C Antibody HIV 1&2 Antibody Rapid HIV P24 Antigen Rubella IgG Antibody Blood Type O POSITIVE Antibody Screen Negative
--- NOTE | 2021-12-22 12:39 | Event Note ---
Date: 12/22/21 Per RN cervical exam feels complete and she would like me to recheck the patient. Cervical exam 8.5/-1. Pt is in a lot of pain from the contractions. Discussed with patient that she may need an epidural to get her more comfortable while she is in labor. Pt declines at this time. Discussed plan to place internal monitors and reason why they are used. Pt agrees to have them placed and she verbalized understanding. FSE placed without difficulty. Some difficulty with placing IUPC. Will keep TOCO on for now. Pt tolerated placement of FSE. Currently a category 1 monitor strip.
--- NOTE | 2021-12-22 14:09 | Ultrasound Report ---
ULTRASOUND OBSTETRIC INDICATION / CLINICAL INFORMATION: EFW. TECHNIQUE: Transabdominal. COMPARISON: None available. FINDINGS: Single intrauterine . Biparietal Diameter = 10.0 cm = 40, 5 weeks, days Head Circumference = 34.2 cm = 38, 4 weeks, days Abdominal Circumference = 33.5 cm = 37, 3 weeks, days Femur Length = 7.2 cm = 36, 6 weeks, days Average Ultrasound Age (AUA) = 38, 3 weeks, days Heart Rate: 135 beats per minute. Estimated Weight in grams (if calculated): 3310 +/- 490 Estimated Weight Growth Percentile (if calculated): 17 Position: cephalic. IMPRESSION: 1. Single, living intrauterine with estimated sonographic age of 38, 3 weeks, days. 2. Estimated weight 3310 g +/- 490 g. Estimated growth percentile 17th percentile Signer Name: Lenny Fan MD Signed: 12/22/2021 2:04 PM Workstation Name: [id number]
--- NOTE | 2021-12-22 15:22 | Progress Note ---
Assessment and Plan - Patient Problems (1) Postmaturity , 40-42 weeks gestation Current Visit: Yes Status: Acute Plan to address problem: Minimal cervical change after 7 hours on pitocin. Limitations of determining adequateness of the pelvis at this EGA discussed. She was informed there may be a 1-2# weight discrepancy by US in the 3rd trimester. Risks with RAJINDER discussed, including but not limited to, shoulder dystocia in which the infant may have transient or permanent paralysis of the the extremities, brain damage or as well as infection. Also discussed possible injury to the rectum or perineum that may require multiple surgeries and result in permanent difficulties with bowel movements and pain. Risks associated with delivery explained, including but not limited to, bleeding that may require a blood transfusion, infection, injury to her bowel and/or bladder or ureters that may be life threatening or fatal. She was also informed that when she has had a delivery she may require repeat deliveries for all subsequent pregnancies. Questions were encouraged and answered, She voiced understanding and does not desire C/S at this time. (2) Limited care in third trimester Current Visit: Yes Status: Acute Subjective - Subjective Principal diagnosis: IUP @ 40.6 wks, active labor, limited PNC Patient reports: movement normal, contractions, no new complaints (Vaginal pressure and pain from the contractions. ) Objective - Vital Signs Vital Signs: Vital Signs - 12hr 12/22/21 12/22/21 12/22/21 03:24 03:29 03:34 Temperature Pulse Rate 89 93 H 87 Respiratory Rate Blood Pressure O2 Sat by Pulse 100 100 100 Oximetry O2 Sat by Pulse Oximetry [ Bilateral] 12/22/21 12/22/21 12/22/21 03:39 03:44 03:49 Temperature Pulse Rate 95 H 91 H 86 Respiratory Rate Blood Pressure O2 Sat by Pulse 100 99 100 Oximetry O2 Sat by Pulse Oximetry [ Bilateral] 12/22/21 12/22/21 12/22/21 03:54 03:59 04:46 Temperature Pulse Rate 87 83 92 H Respiratory Rate Blood Pressure O2 Sat by Pulse 100 99 98 Oximetry O2 Sat by Pulse Oximetry [ Bilateral] 12/22/21 12/22/21 12/22/21 04:51 04:56 05:01 Temperature Pulse Rate 89 93 H 90 Respiratory Rate Blood Pressure O2 Sat by Pulse 99 99 99 Oximetry O2 Sat by Pulse Oximetry [ Bilateral] 12/22/21 12/22/21 12/22/21 05:06 05:11 05:16 Temperature Pulse Rate 91 H 88 94 H Respiratory Rate Blood Pressure O2 Sat by Pulse 99 99 99 Oximetry O2 Sat by Pulse Oximetry [ Bilateral] 12/22/21 12/22/21 12/22/21 05:21 05:26 05:31 Temperature Pulse Rate 90 92 H 95 H Respiratory Rate Blood Pressure O2 Sat by Pulse 99 99 99 Oximetry O2 Sat by Pulse Oximetry [ Bilateral] 12/22/21 12/22/21 12/22/21 05:36 05:41 05:46 Temperature Pulse Rate 84 88 88 Respiratory Rate Blood Pressure O2 Sat by Pulse 98 97 97 Oximetry O2 Sat by Pulse Oximetry [ Bilateral] 12/22/21 12/22/21 12/22/21 05:51 05:56 06:01 Temperature Pulse Rate 92 H 95 H 93 H Respiratory Rate Blood Pressure O2 Sat by Pulse 98 100 99 Oximetry O2 Sat by Pulse Oximetry [ Bilateral] 12/22/21 12/22/21 12/22/21 06:06 06:11 06:16 Temperature Pulse Rate 93 H 88 90 Respiratory Rate Blood Pressure O2 Sat by Pulse 98 99 100 Oximetry O2 Sat by Pulse Oximetry [ Bilateral] 12/22/21 12/22/21 12/22/21 06:21 06:26 06:31 Temperature Pulse Rate 95 H 85 93 H Respiratory Rate Blood Pressure O2 Sat by Pulse 98 99 98 Oximetry O2 Sat by Pulse Oximetry [ Bilateral] 12/22/21 12/22/21 12/22/21 06:36 06:41 06:46 Temperature Pulse Rate 90 93 H 86 Respiratory Rate Blood Pressure O2 Sat by Pulse 99 98 99 Oximetry O2 Sat by Pulse Oximetry [ Bilateral] 12/22/21 12/22/21 12/22/21 06:51 06:56 07:01 Temperature Pulse Rate 84 92 H 104 H Respiratory Rate Blood Pressure O2 Sat by Pulse 99 98 99 Oximetry O2 Sat by Pulse Oximetry [ Bilateral] 12/22/21 12/22/21 12/22/21 07:06 07:11 07:16 Temperature Pulse Rate 86 87 88 Respiratory Rate Blood Pressure O2 Sat by Pulse 100 98 98 Oximetry O2 Sat by Pulse Oximetry [ Bilateral] 12/22/21 12/22/21 12/22/21 07:21 07:26 07:30 Temperature Pulse Rate 89 92 H Respiratory Rate Blood Pressure O2 Sat by Pulse 98 99 Oximetry O2 Sat by Pulse 98 Oximetry [ Bilateral] 12/22/21 12/22/21 12/22/21 07:31 07:36 07:41 Temperature Pulse Rate 91 H 88 90 Respiratory Rate Blood Pressure O2 Sat by Pulse 99 100 99 Oximetry O2 Sat by Pulse Oximetry [ Bilateral] 12/22/21 12/22/21 12/22/21 07:46 07:47 07:51 Temperature Pulse Rate 90 89 Respiratory 20 Rate Blood Pressure O2 Sat by Pulse 98 98 Oximetry O2 Sat by Pulse Oximetry [ Bilateral] 12/22/21 12/22/21 12/22/21 07:56 08:01 08:06 Temperature Pulse Rate 86 89 86 Respiratory Rate Blood Pressure O2 Sat by Pulse 98 98 98 Oximetry O2 Sat by Pulse Oximetry [ Bilateral] 12/22/21 12/22/21 12/22/21 08:11 08:16 08:21 Temperature Pulse Rate 82 80 81 Respiratory Rate Blood Pressure O2 Sat by Pulse 97 98 98 Oximetry O2 Sat by Pulse Oximetry [ Bilateral] 12/22/21 12/22/21 12/22/21 08:26 08:31 08:36 Temperature Pulse Rate 86 81 86 Respiratory Rate Blood Pressure O2 Sat by Pulse 97 98 98 Oximetry O2 Sat by Pulse Oximetry [ Bilateral] 12/22/21 12/22/21 12/22/21 08:41 08:46 08:51 Temperature Pulse Rate 84 87 89 Respiratory Rate Blood Pressure O2 Sat by Pulse 99 99 100 Oximetry O2 Sat by Pulse Oximetry [ Bilateral] 12/22/21 12/22/21 12/22/21 08:56 09:00 09:01 Temperature 98.5 F Pulse Rate 89 87 Respiratory Rate Blood Pressure O2 Sat by Pulse 99 100 Oximetry O2 Sat by Pulse Oximetry [ Bilateral] 12/22/21 12/22/21 12/22/21 09:26 09:31 09:36 Temperature Pulse Rate 93 H 99 H 87 Respiratory Rate Blood Pressure O2 Sat by Pulse 100 98 99 Oximetry O2 Sat by Pulse Oximetry [ Bilateral] 12/22/21 12/22/21 12/22/21 09:41 09:46 09:51 Temperature Pulse Rate 81 84 83 Respiratory Rate Blood Pressure O2 Sat by Pulse 99 99 100 Oximetry O2 Sat by Pulse Oximetry [ Bilateral] 12/22/21 12/22/21 12/22/21 09:56 10:01 10:06 Temperature Pulse Rate 88 85 100 H Respiratory Rate Blood Pressure O2 Sat by Pulse 100 100 99 Oximetry O2 Sat by Pulse Oximetry [ Bilateral] 12/22/21 12/22/21 12/22/21 10:11 10:16 10:21 Temperature Pulse Rate 87 85 93 H Respiratory Rate Blood Pressure O2 Sat by Pulse 100 98 98 Oximetry O2 Sat by Pulse Oximetry [ Bilateral] 12/22/21 12/22/21 12/22/21 10:22 10:26 10:31 Temperature Pulse Rate 82 88 90 Respiratory Rate Blood Pressure 138/73 O2 Sat by Pulse 99 99 Oximetry O2 Sat by Pulse Oximetry [ Bilateral] 12/22/21 12/22/21 12/22/21 10:36 10:41 10:46 Temperature Pulse Rate 94 H 94 H 96 H Respiratory Rate Blood Pressure O2 Sat by Pulse 99 98 100 Oximetry O2 Sat by Pulse Oximetry [ Bilateral] 12/22/21 12/22/21 12/22/21 10:51 10:52 10:56 Temperature Pulse Rate 89 88 85 Respiratory Rate Blood Pressure 124/86 O2 Sat by Pulse 100 97 Oximetry O2 Sat by Pulse Oximetry [ Bilateral] 12/22/21 12/22/21 12/22/21 11:01 11:06 11:11 Temperature Pulse Rate 86 84 84 Respiratory Rate Blood Pressure O2 Sat by Pulse 98 98 99 Oximetry O2 Sat by Pulse Oximetry [ Bilateral] 12/22/21 12/22/21 12/22/21 11:16 11:21 11:26 Temperature Pulse Rate 86 85 85 Respiratory Rate Blood Pressure 126/74 O2 Sat by Pulse 98 99 98 Oximetry O2 Sat by Pulse Oximetry [ Bilateral] 12/22/21 12/22/21 12/22/21 11:31 11:36 11:41 Temperature Pulse Rate 87 86 84 Respiratory Rate Blood Pressure O2 Sat by Pulse 98 98 98 Oximetry O2 Sat by Pulse Oximetry [ Bilateral] 12/22/21 12/22/21 12/22/21 11:46 11:50 11:51 Temperature Pulse Rate 88 83 98 H Respiratory Rate Blood Pressure 120/69 O2 Sat by Pulse 99 99 Oximetry O2 Sat by Pulse Oximetry [ Bilateral] 12/22/21 12/22/2112/22/22 11:56 12:01 12:06 Temperature Pulse Rate 87 85 83 Respiratory Rate Blood Pressure O2 Sat by Pulse 98 99 99 Oximetry O2 Sat by Pulse Oximetry [ Bilateral] 12/22/21 12/22/21 12/22/21 12:11 12:16 12:21 Temperature Pulse Rate 84 94 H 87 Respiratory Rate Blood Pressure O2 Sat by Pulse 99 99 99 Oximetry O2 Sat by Pulse Oximetry [ Bilateral] 12/22/21 12/22/21 12/22/21 12:23 12:26 12:31 Temperature Pulse Rate 79 85 96 H Respiratory Rate Blood Pressure 118/73 O2 Sat by Pulse 99 100 Oximetry O2 Sat by Pulse Oximetry [ Bilateral] 12/22/21 12/22/21 12/22/21 12:36 12:41 12:46 Temperature Pulse Rate 84 87 94 H Respiratory Rate Blood Pressure O2 Sat by Pulse 100 99 99 Oximetry O2 Sat by Pulse Oximetry [ Bilateral] 12/22/21 12/22/21 12/22/21 12:51 12:52 12:56 Temperature Pulse Rate 86 86 81 Respiratory Rate Blood Pressure 118/64 O2 Sat by Pulse 99 100 Oximetry O2 Sat by Pulse Oximetry [ Bilateral] 12/22/21 12/22/21 12/22/21 13:01 13:06 13:11 Temperature Pulse Rate 91 H 89 89 Respiratory Rate Blood Pressure O2 Sat by Pulse 99 99 99 Oximetry O2 Sat by Pulse Oximetry [ Bilateral] 12/22/21 12/22/21 12/22/21 13:16 13:21 13:26 Temperature Pulse Rate 85 91 H 80 Respiratory Rate Blood Pressure 130/78 O2 Sat by Pulse 99 98 100 Oximetry O2 Sat by Pulse Oximetry [ Bilateral] 12/22/21 12/22/21 12/22/21 13:31 13:36 13:41 Temperature Pulse Rate 96 H 89 84 Respiratory Rate Blood Pressure O2 Sat by Pulse 100 100 99 Oximetry O2 Sat by Pulse Oximetry [ Bilateral] 12/22/21 12/22/21 12/22/21 13:46 13:50 13:51 Temperature Pulse Rate 88 90 87 Respiratory Rate Blood Pressure 131/74 O2 Sat by Pulse 99 99 Oximetry O2 Sat by Pulse Oximetry [ Bilateral] 12/22/21 12/22/21 12/22/21 13:56 14:00 14:01 Temperature 98.5 F Pulse Rate 89 85 Respiratory Rate Blood Pressure O2 Sat by Pulse 100 100 Oximetry O2 Sat by Pulse Oximetry [ Bilateral] 12/22/21 12/22/21 12/22/21 14:06 14:11 14:16 Temperature Pulse Rate 87 91 H 85 Respiratory Rate Blood Pressure O2 Sat by Pulse 100 99 100 Oximetry O2 Sat by Pulse Oximetry [ Bilateral] 12/22/21 12/22/21 12/22/21 14:21 14:23 14:26 Temperature Pulse Rate 82 82 Respiratory 18 Rate Blood Pressure 124/66 O2 Sat by Pulse 99 99 Oximetry O2 Sat by Pulse Oximetry [ Bilateral] 12/22/21 12/22/21 12/22/21 14:31 14:36 14:41 Temperature Pulse Rate 79 85 83 Respiratory Rate Blood Pressure O2 Sat by Pulse 98 98 98 Oximetry O2 Sat by Pulse Oximetry [ Bilateral] 12/22/21 12/22/21 12/22/21 14:46 14:51 14:56 Temperature Pulse Rate 83 85 85 Respiratory Rate Blood Pressure 119/65 O2 Sat by Pulse 99 98 98 Oximetry O2 Sat by Pulse Oximetry [ Bilateral] 12/22/21 12/22/21 12/22/21 15:01 15:06 15:11 Temperature Pulse Rate 93 H 85 85 Respiratory Rate Blood Pressure O2 Sat by Pulse 99 99 99 Oximetry O2 Sat by Pulse Oximetry [ Bilateral] 12/22/21 15:16 Temperature Pulse Rate 85 Respiratory Rate Blood Pressure O2 Sat by Pulse 99 Oximetry O2 Sat by Pulse Oximetry [ Bilateral] - Exam Cardiovascular: Regular rate Lungs: Normal air movement Abdomen: Present: soft. Absent: tenderness Vulva: both: normal Uterus: Present: fundal height above umbilicus. Absent: tenderness FHR: category 1 Uterine Contraction Monitor Mode: External Cervical Dilatation: 7.5 Cervical Effacement Percentage: 80 station: 0 Uterine Contraction Frequency (min): 2 Uterine Contraction Pattern: Regular Extremities: normal - Labs Labs: Abnormal Labs 12/21/21 00:05 MCH 26 L [place] % (Auto) 7.6 H Seg Neutrophils % 73.6 H Seg Neutrophils # 8.0 H Laboratory Results - last 24 hr 12/21/21 12/21/21 12/21/21 00:05 00:05 00:05 WBC 10.8 RBC 4.41 Hgb 11.4 Hct 35.6 MCV 81 MCH 26 L MCHC 32 RDW 15.2 Plt Count 240 Lymph % (Auto) 18.1 [place] % (Auto) 7.6 H Eos % (Auto) 0.5 Baso % (Auto) 0.2 Lymph # (Auto) 2.0 [place] # (Auto) 0.8 Eos # (Auto) 0.1 Baso # (Auto) 0.0 Seg Neutrophils % 73.6 H Seg Neutrophils # 8.0 H Urine Color Urine Turbidity Urine pH Ur Specific [place] Urine Protein Urine Glucose (UA) Urine Ketones Urine Blood Urine Nitrite Urine Bilirubin Urine Urobilinogen Ur Leukocyte Esterase Urine WBC (Auto) Urine RBC (Auto) U Epithel Cells (Auto) Urine Bacteria (Auto) Urine Opiates Screen Urine Methadone Screen Ur Barbiturates Screen Ur Phencyclidine Scrn Ur Amphetamines Screen U Benzodiazepines Scrn Urine Cocaine Screen U Marijuana (THC) Screen Drugs of Abuse Note Syphilis IgG/IgM Ab Nonreactive SARS-CoV-2 (PCR) Hep Bs Antigen Non-reactive Hepatitis C Antibody Non-reactive HIV 1&2 Antibody Rapid Non react HIV P24 Antigen Non react Rubella IgG Antibody Immune Blood Type Antibody Screen 12/21/21 12/21/21 12/21/21 00:05 00:23 00:23 WBC RBC Hgb Hct MCV MCH MCHC RDW Plt Count Lymph % (Auto) [place] % (Auto) Eos % (Auto) Baso % (Auto) Lymph # (Auto) [place] # (Auto) Eos # (Auto) Baso # (Auto) Seg Neutrophils % Seg Neutrophils # Urine Color Yellow Urine Turbidity Slightly-cloudy Urine pH 6.0 Ur Specific [place] 1.009 Urine Protein <15 mg/dl Urine Glucose (UA) Neg Urine Ketones Tr Urine Blood Neg Urine Nitrite Neg Urine Bilirubin Neg Urine Urobilinogen 2.0 Ur Leukocyte Esterase Mod Urine WBC (Auto) 5.0 Urine RBC (Auto) < 1.0 U Epithel Cells (Auto) 7.0 Urine Bacteria (Auto) 1+ Urine Opiates Screen Presumptive negative Urine Methadone Screen Presumptive negative Ur Barbiturates Screen Presumptive negative Ur Phencyclidine Scrn Presumptive negative Ur Amphetamines Screen Presumptive negative U Benzodiazepines Scrn Presumptive negative Urine Cocaine Screen Presumptive negative U Marijuana (THC) Screen Presumptive negative Drugs of Abuse Note Disclamer Syphilis IgG/IgM Ab SARS-CoV-2 (PCR) Hep Bs Antigen Hepatitis C Antibody HIV 1&2 Antibody Rapid HIV P24 Antigen Rubella IgG Antibody Blood Type O POSITIVE Antibody Screen Negative 12/22/21 10:35 WBC RBC Hgb Hct MCV MCH MCHC RDW Plt Count Lymph % (Auto) [place] % (Auto) Eos % (Auto) Baso % (Auto) Lymph # (Auto) [place] # (Auto) Eos # (Auto) Baso # (Auto) Seg Neutrophils % Seg Neutrophils # Urine Color Urine Turbidity Urine pH Ur Specific [place] Urine Protein Urine Glucose (UA) Urine Ketones Urine Blood Urine Nitrite Urine Bilirubin Urine Urobilinogen Ur Leukocyte Esterase Urine WBC (Auto) Urine RBC (Auto) U Epithel Cells (Auto) Urine Bacteria (Auto) Urine Opiates Screen Urine Methadone Screen Ur Barbiturates Screen Ur Phencyclidine Scrn Ur Amphetamines Screen U Benzodiazepines Scrn Urine Cocaine Screen U Marijuana (THC) Screen Drugs of Abuse Note Syphilis IgG/IgM Ab SARS-CoV-2 (PCR) Negative Hep Bs Antigen Hepatitis C Antibody HIV 1&2 Antibody Rapid HIV P24 Antigen Rubella IgG Antibody Blood Type Antibody Screen
--- NOTE | 2021-12-22 17:23 | Event Note ---
Date: 12/22/21 Cervical exam remains unchanged. Spoke with patient regarding recommendation for at this time. Patient and her significant other would like to wait a few more hours before proceeding with a . Dr. Ashby made aware of patient's decision.
[2021-12-22] MEDS ORDERED: NALOXONE 2 MG/2 ML INJ IV PRN (17:26)
--- NOTE | 2021-12-22 17:26 | Anesthesia Consultation ---
Anesthesia Consult and Med Hx Date of service: 12/22/21 - Airway Anesthetic Teeth Evaluation: Good ROM Head & Neck: Adequate Mental/Hyoid Distance: Adequate Mallampati Class: Class II Intubation Access Assessment: Probably Good - Pulmonary Exam CTA: Yes - Cardiac Exam Cardiac Exam: RRR - Pre-Operative Health Status ASA Pre-Surgery Classification: ASA2 Proposed Anesthetic Plan: Epidural - Pulmonary Hx Asthma: No COPD: No Hx Pneumonia: No - Cardiovascular System Hx Hypertension: No - Central Nervous System Hx Seizures: No Hx Psychiatric Problems: No - Endocrine Hx Renal Disease: No Hx End Stage Renal Disease: No Hx Hypothyroidism: No Hx Hyperthyroidism: No - Hematic Hx Anemia: No Hx Sickle Cell Disease: No - Other Systems Hx Alcohol Use: No
--- NOTE | 2021-12-22 17:56 | Progress Note ---
Labor Epidural - Labor Epidural Start Time: 17:46 Stop Time: 18:00 Performed by:: CHERISE MARAVILLA Procedure: Patient is requesting epidural for labor pain. H&P, and labs reviewed. Procedure explained, questions answered, consent obtained. Patient in sitting position with blood pressure cuff and pulse ox on and working. Timeout performed immediately before start of procedure. Sterile Chloraprep prep/drape. 3 mL 1% lidocaine skin wheal at L[3]-L[4]. 17-gauge tuohy epidural needle advanced to [id number] with saline at [7] cm. 25-gauge spinal needle advanced until clear, free-flowing CSF. Intrathecal dexmedetomidine [5] mcg administered and needle removed. Epidural catheter advanced to [12] cm, negative aspiration for blood and csf, negative test dose 3 ml 1.5% lidocaine with epinephrine. Sterile sponge and tegaderm applied, followed by tape reinforcement. Patient tolerated procedure well. SRNA
[2021-12-22] MEDS ORDERED: fentaNYL-BUPIV 2 MCG/ML-0.125% 200 MCG/100 ML BAG EPIDURAL SCH (18:00)
--- NOTE | 2021-12-22 19:09 | Event Note ---
Date: 12/22/21 (Unchanged cervical exam) Waited the requested 2 hours before cervical exam. At this time the cervical exam remains unchanged. Discussed with patient unchanged cervical exam and that at this time a may be needed. Pt agreed at this time. Dr. Ashby made aware.
--- NOTE | 2021-12-22 19:27 | Event Note ---
Date: 12/22/21 Still no appropriate cervical change for ~12hours. Now recommend c/s. Risk associated with delivery were discussed, including but not limited to, bleeding that may require blood transfusion, infection that may be life threatening, injury to adjacent organs specifically bowel or bladder that may require further surgeries, or major vascular injury. She was also informed that when she has had a delivery she may require repeat deliveries for all subsequent pregnancies. Questions were encouraged and answered.Initiall y stated she would proceed with a c/s however after I left the room Vesna PRADO states patient was refusing to sign the consent and desires to wait until 915. Again discussed continue RAJINDER with risk for infection, bleeding, brain damage and . Patient voiced understanding. Will attempt position changes and continue pitocin however will not increase dosing.
--- NOTE | 2021-12-22 21:29 | Progress Note ---
Assessment and Plan A: 21 y.o. @ 40.6 wks, active labor, limited PNC. P: Will come back in 30 minutes and reassess cervix and try a trial of pushing. - Patient Problems (1) Limited care in third trimester Current Visit: Yes Status: Acute (2) Postmaturity , 40-42 weeks gestation Current Visit: Yes Status: Acute Subjective - Subjective Date of service: 12/22/21 Principal diagnosis: IUP @ 40.6 wks, active labor, limited PNC Patient reports: movement normal, contractions, no new complaints (Vaginal pressure and pain from the contractions. ) Objective - Vital Signs Vital Signs: Vital Signs - 12hr 12/22/21 12/22/21 12/22/21 09:26 09:31 09:36 Temperature Pulse Rate 93 H 99 H 87 Respiratory Rate Blood Pressure O2 Sat by Pulse 100 98 99 Oximetry O2 Sat by Pulse Oximetry [ Bilateral] 12/22/21 12/22/21 12/22/21 09:41 09:46 09:51 Temperature Pulse Rate 81 84 83 Respiratory Rate Blood Pressure O2 Sat by Pulse 99 99 100 Oximetry O2 Sat by Pulse Oximetry [ Bilateral] 12/22/21 12/22/21 12/22/21 09:56 10:01 10:06 Temperature Pulse Rate 88 85 100 H Respiratory Rate Blood Pressure O2 Sat by Pulse 100 100 99 Oximetry O2 Sat by Pulse Oximetry [ Bilateral] 12/22/21 12/22/21 12/22/21 10:11 10:16 10:21 Temperature Pulse Rate 87 85 93 H Respiratory Rate Blood Pressure O2 Sat by Pulse 100 98 98 Oximetry O2 Sat by Pulse Oximetry [ Bilateral] 12/22/21 12/22/21 12/22/21 10:22 10:26 10:31 Temperature Pulse Rate 82 88 90 Respiratory Rate Blood Pressure 138/73 O2 Sat by Pulse 99 99 Oximetry O2 Sat by Pulse Oximetry [ Bilateral] 12/22/21 12/22/21 12/22/21 10:36 10:41 10:46 Temperature Pulse Rate 94 H 94 H 96 H Respiratory Rate Blood Pressure O2 Sat by Pulse 99 98 100 Oximetry O2 Sat by Pulse Oximetry [ Bilateral] 12/22/21 12/22/21 12/22/21 10:51 10:52 10:56 Temperature Pulse Rate 89 88 85 Respiratory Rate Blood Pressure 124/86 O2 Sat by Pulse 100 97 Oximetry O2 Sat by Pulse Oximetry [ Bilateral] 12/22/21 12/22/21 12/22/21 11:01 11:06 11:11 Temperature Pulse Rate 86 84 84 Respiratory Rate Blood Pressure O2 Sat by Pulse 98 98 99 Oximetry O2 Sat by Pulse Oximetry [ Bilateral] 12/22/21 12/22/21 12/22/21 11:16 11:21 11:26 Temperature Pulse Rate 86 85 85 Respiratory Rate Blood Pressure 126/74 O2 Sat by Pulse 98 99 98 Oximetry O2 Sat by Pulse Oximetry [ Bilateral] 12/22/21 12/22/21 12/22/21 11:31 11:36 11:41 Temperature Pulse Rate 87 86 84 Respiratory Rate Blood Pressure O2 Sat by Pulse 98 98 98 Oximetry O2 Sat by Pulse Oximetry [ Bilateral] 12/22/21 12/22/21 12/22/21 11:46 11:50 11:51 Temperature Pulse Rate 88 83 98 H Respiratory Rate Blood Pressure 120/69 O2 Sat by Pulse 99 99 Oximetry O2 Sat by Pulse Oximetry [ Bilateral] 12/22/21 12/22/21 12/22/21 11:56 12:01 12:06 Temperature Pulse Rate 87 85 83 Respiratory Rate Blood Pressure O2 Sat by Pulse 98 99 99 Oximetry O2 Sat by Pulse Oximetry [ Bilateral] 12/22/21 12/22/21 12/22/21 12:11 12:16 12:21 Temperature Pulse Rate 84 94 H 87 Respiratory Rate Blood Pressure O2 Sat by Pulse 99 99 99 Oximetry O2 Sat by Pulse Oximetry [ Bilateral] 12/22/21 12/22/21 12/22/21 12:23 12:26 12:31 Temperature Pulse Rate 79 85 96 H Respiratory Rate Blood Pressure 118/73 O2 Sat by Pulse 99 100 Oximetry O2 Sat by Pulse Oximetry [ Bilateral] 12/22/21 12/22/21 12/22/21 12:36 12:41 12:46 Temperature Pulse Rate 84 87 94 H Respiratory Rate Blood Pressure O2 Sat by Pulse 100 99 99 Oximetry O2 Sat by Pulse Oximetry [ Bilateral] 12/22/21 12/22/21 12/22/21 12:51 12:52 12:56 Temperature Pulse Rate 86 86 81 Respiratory Rate Blood Pressure 118/64 O2 Sat by Pulse 99 100 Oximetry O2 Sat by Pulse Oximetry [ Bilateral] 12/22/21 12/22/21 12/22/21 13:01 13:06 13:11 Temperature Pulse Rate 91 H 89 89 Respiratory Rate Blood Pressure O2 Sat by Pulse 99 99 99 Oximetry O2 Sat by Pulse Oximetry [ Bilateral] 12/22/21 12/22/21 12/22/21 13:16 13:21 13:26 Temperature Pulse Rate 85 91 H 80 Respiratory Rate Blood Pressure 130/78 O2 Sat by Pulse 99 98 100 Oximetry O2 Sat by Pulse Oximetry [ Bilateral] 12/22/21 12/22/21 12/22/21 13:31 13:36 13:41 Temperature Pulse Rate 96 H 89 84 Respiratory Rate Blood Pressure O2 Sat by Pulse 100 100 99 Oximetry O2 Sat by Pulse Oximetry [ Bilateral] 12/22/21 12/22/21 12/22/21 13:46 13:50 13:51 Temperature Pulse Rate 88 90 87 Respiratory Rate Blood Pressure 131/74 O2 Sat by Pulse 99 99 Oximetry O2 Sat by Pulse Oximetry [ Bilateral] 12/22/21 12/22/21 12/22/21 13:56 14:00 14:01 Temperature 98.5 F Pulse Rate 89 85 Respiratory Rate Blood Pressure O2 Sat by Pulse 100 100 Oximetry O2 Sat by Pulse Oximetry [ Bilateral] 12/22/21 12/22/21 12/22/21 14:06 14:11 14:16 Temperature Pulse Rate 87 91 H 85 Respiratory Rate Blood Pressure O2 Sat by Pulse 100 99 100 Oximetry O2 Sat by Pulse Oximetry [ Bilateral] 12/22/21 12/22/21 12/22/21 14:21 14:23 14:26 Temperature Pulse Rate 82 82 Respiratory 18 Rate Blood Pressure 124/66 O2 Sat by Pulse 99 99 Oximetry O2 Sat by Pulse Oximetry [ Bilateral] 12/22/21 12/22/21 12/22/21 14:31 14:36 14:41 Temperature Pulse Rate 79 85 83 Respiratory Rate Blood Pressure O2 Sat by Pulse 98 98 98 Oximetry O2 Sat by Pulse Oximetry [ Bilateral] 12/22/21 12/22/21 12/22/21 14:46 14:51 14:56 Temperature Pulse Rate 83 85 85 Respiratory Rate Blood Pressure 119/65 O2 Sat by Pulse 99 98 98 Oximetry O2 Sat by Pulse Oximetry [ Bilateral] 03/13/22 03/13/22 03/13/22 15:01 15:06 15:11 Temperature Pulse Rate 93 H 85 85 Respiratory Rate Blood Pressure O2 Sat by Pulse 99 99 99 Oximetry O2 Sat by Pulse Oximetry [ Bilateral] 12/22/21 12/22/21 12/22/21 15:16 15:20 15:21 Temperature Pulse Rate 85 83 85 Respiratory Rate Blood Pressure 121/69 O2 Sat by Pulse 99 98 Oximetry O2 Sat by Pulse Oximetry [ Bilateral] 12/22/21 12/22/21 12/22/21 15:26 15:31 15:36 Temperature Pulse Rate 85 89 94 H Respiratory Rate Blood Pressure O2 Sat by Pulse 98 98 98 Oximetry O2 Sat by Pulse Oximetry [ Bilateral] 12/22/21 12/22/21 12/22/21 15:41 15:46 15:51 Temperature Pulse Rate 91 H 98 H 104 H Respiratory Rate Blood Pressure 119/69 O2 Sat by Pulse 98 99 100 Oximetry O2 Sat by Pulse Oximetry [ Bilateral] 12/22/21 12/22/21 12/22/21 15:56 16:04 16:09 Temperature Pulse Rate 89 90 92 H Respiratory Rate Blood Pressure O2 Sat by Pulse 100 100 99 Oximetry O2 Sat by Pulse Oximetry [ Bilateral] 12/22/21 12/22/21 12/22/21 16:14 16:19 16:21 Temperature Pulse Rate 90 90 85 Respiratory Rate Blood Pressure 119/66 O2 Sat by Pulse 99 100 Oximetry O2 Sat by Pulse Oximetry [ Bilateral] 12/22/21 12/22/21 12/22/21 16:24 16:29 16:34 Temperature Pulse Rate 100 H 97 H 92 H Respiratory Rate Blood Pressure O2 Sat by Pulse 99 98 99 Oximetry O2 Sat by Pulse Oximetry [ Bilateral] 12/22/21 12/22/21 12/22/21 16:39 16:44 16:49 Temperature Pulse Rate 101 H 94 H 106 H Respiratory Rate Blood Pressure O2 Sat by Pulse 98 99 99 Oximetry O2 Sat by Pulse Oximetry [ Bilateral] 12/22/21 12/22/21 12/22/21 16:51 16:54 16:59 Temperature Pulse Rate 89 92 H 96 H Respiratory Rate Blood Pressure 113/60 O2 Sat by Pulse 97 100 Oximetry O2 Sat by Pulse Oximetry [ Bilateral] 12/22/21 12/22/21 12/22/21 17:04 17:09 17:14 Temperature Pulse Rate 93 H 95 H 95 H Respiratory Rate Blood Pressure O2 Sat by Pulse 100 99 100 Oximetry O2 Sat by Pulse Oximetry [ Bilateral] 12/22/21 12/22/21 12/22/21 17:19 17:21 17:24 Temperature Pulse Rate 91 H 100 H 88 Respiratory Rate Blood Pressure 128/72 O2 Sat by Pulse 100 99 Oximetry O2 Sat by Pulse Oximetry [ Bilateral] 12/22/21 12/22/21 12/22/21 17:29 17:34 17:39 Temperature Pulse Rate 102 H 90 106 H Respiratory Rate Blood Pressure O2 Sat by Pulse 99 98 99 Oximetry O2 Sat by Pulse Oximetry [ Bilateral] 12/22/21 12/22/21 12/22/21 17:44 17:49 17:51 Temperature Pulse Rate 95 H 99 H 98 H Respiratory Rate Blood Pressure 130/71 O2 Sat by Pulse 99 99 Oximetry O2 Sat by Pulse Oximetry [ Bilateral] 12/22/21 12/22/21 12/22/21 17:54 17:59 18:02 Temperature Pulse Rate 100 H 99 H 97 H Respiratory Rate Blood Pressure 125/71 123/65 O2 Sat by Pulse 98 98 Oximetry O2 Sat by Pulse Oximetry [ Bilateral] 12/22/21 12/22/21 12/22/21 18:04 18:05 18:08 Temperature Pulse Rate 96 H 95 H 93 H Respiratory Rate Blood Pressure 115/69 109/56 O2 Sat by Pulse 100 Oximetry O2 Sat by Pulse Oximetry [ Bilateral] 12/22/21 12/22/21 12/22/21 18:09 18:11 18:14 Temperature Pulse Rate 94 H 91 H 93 H Respiratory Rate Blood Pressure 109/59 107/58 O2 Sat by Pulse 100 100 Oximetry O2 Sat by Pulse Oximetry [ Bilateral] 12/22/21 12/22/21 12/22/21 18:17 18:19 18:20 Temperature Pulse Rate 88 89 91 H Respiratory Rate Blood Pressure 99/53 102/52 O2 Sat by Pulse 100 Oximetry O2 Sat by Pulse Oximetry [ Bilateral] 12/22/21 12/22/21 12/22/21 18:23 18:24 18:26 Temperature Pulse Rate 90 92 H 91 H Respiratory Rate Blood Pressure 105/55 101/54 O2 Sat by Pulse 100 Oximetry O2 Sat by Pulse Oximetry [ Bilateral] 12/22/21 12/22/21 12/22/21 18:28 18:29 18:31 Temperature Pulse Rate 107 H 97 H 95 H Respiratory Rate Blood Pressure 94/54 103/58 O2 Sat by Pulse 99 Oximetry O2 Sat by Pulse Oximetry [ Bilateral] 12/22/21 12/22/21 12/22/21 18:34 18:37 18:39 Temperature Pulse Rate 89 93 H 95 H Respiratory Rate Blood Pressure 108/57 O2 Sat by Pulse 100 100 Oximetry O2 Sat by Pulse Oximetry [ Bilateral] 12/22/21 12/22/21 12/22/21 18:41 18:44 18:48 Temperature Pulse Rate 97 H 95 H 95 H Respiratory Rate Blood Pressure 104/54 108/59 O2 Sat by Pulse 100 Oximetry O2 Sat by Pulse Oximetry [ Bilateral] 12/22/21 12/22/21 12/22/21 18:49 18:52 18:54 Temperature Pulse Rate 97 H 98 H 100 H Respiratory Rate Blood Pressure 108/59 O2 Sat by Pulse 100 100 Oximetry O2 Sat by Pulse Oximetry [ Bilateral] 12/22/21 12/22/21 12/22/21 18:57 18:59 19:02 Temperature Pulse Rate 99 H 108 H 101 H Respiratory Rate Blood Pressure 108/55 106/63 O2 Sat by Pulse 100 Oximetry O2 Sat by Pulse Oximetry [ Bilateral] 12/22/21 12/22/21 12/22/21 19:04 19:06 19:09 Temperature Pulse Rate 106 H 99 H 105 H Respiratory Rate Blood Pressure 106/60 O2 Sat by Pulse 99 100 Oximetry O2 Sat by Pulse Oximetry [ Bilateral] 12/22/21 12/22/21 12/22/21 19:12 19:13 19:14 Temperature 98.4 F Pulse Rate 102 H 101 H Respiratory 18 Rate Blood Pressure 111/63 O2 Sat by Pulse 10 L 100 Oximetry O2 Sat by Pulse Oximetry [ Bilateral] 12/22/21 12/22/21 12/22/21 19:18 19:19 19:24 Temperature Pulse Rate 103 H 102 H Respiratory Rate Blood Pressure O2 Sat by Pulse 100 100 Oximetry O2 Sat by Pulse 100 Oximetry [ Bilateral] 12/22/21 12/22/21 12/22/21 19:29 19:31 19:34 Temperature Pulse Rate 91 H 94 H 95 H Respiratory Rate Blood Pressure 103/59 O2 Sat by Pulse 100 100 Oximetry O2 Sat by Pulse Oximetry [ Bilateral] 12/22/21 12/22/21 12/22/21 19:39 19:44 19:45 Temperature Pulse Rate 101 H 100 H 96 H Respiratory Rate Blood Pressure 105/55 O2 Sat by Pulse 99 99 Oximetry O2 Sat by Pulse Oximetry [ Bilateral] 12/22/21 12/22/21 12/22/21 19:49 19:54 19:59 Temperature Pulse Rate 110 H 95 H 103 H Respiratory Rate Blood Pressure O2 Sat by Pulse 98 100 100 Oximetry O2 Sat by Pulse Oximetry [ Bilateral] 12/22/21 12/22/21 12/22/21 20:01 20:04 20:09 Temperature Pulse Rate 94 H 95 H 100 H Respiratory Rate Blood Pressure 108/58 O2 Sat by Pulse 100 100 Oximetry O2 Sat by Pulse Oximetry [ Bilateral] 12/22/21 12/22/21 12/22/21 20:14 20:19 20:24 Temperature Pulse Rate 100 H 99 H 98 H Respiratory Rate Blood Pressure O2 Sat by Pulse 100 100 100 Oximetry O2 Sat by Pulse Oximetry [ Bilateral] 12/22/21 12/22/21 12/22/21 20:29 20:31 20:34 Temperature Pulse Rate 96 H 94 H 110 H Respiratory Rate Blood Pressure 111/64 O2 Sat by Pulse 100 99 Oximetry O2 Sat by Pulse Oximetry [ Bilateral] 12/22/21 12/22/21 12/22/21 20:39 20:44 20:49 Temperature Pulse Rate 105 H 92 H 89 Respiratory Rate Blood Pressure O2 Sat by Pulse 99 99 99 Oximetry O2 Sat by Pulse Oximetry [ Bilateral] 12/22/21 12/22/21 12/22/21 20:52 20:54 20:59 Temperature Pulse Rate 93 H 86 91 H Respiratory Rate Blood Pressure 105/56 O2 Sat by Pulse 99 100 Oximetry O2 Sat by Pulse Oximetry [ Bilateral] 12/22/21 12/22/21 12/22/21 21:04 21:09 21:12 Temperature Pulse Rate 87 91 H 107 H Respiratory Rate Blood Pressure 122/65 O2 Sat by Pulse 99 99 93 Oximetry O2 Sat by Pulse Oximetry [ Bilateral] 12/22/21 12/22/21 21:14 21:19 Temperature Pulse Rate 103 H 111 H Respiratory Rate Blood Pressure O2 Sat by Pulse 100 100 Oximetry O2 Sat by Pulse Oximetry [ Bilateral] - Exam Breasts: deferred Cardiovascular: Regular rate Lungs: Normal air movement Abdomen: Present: normal appearance, soft Vulva: both: normal FHR: category 1 Uterine Contraction Monitor Mode: External Cervical Dilatation: 9.5 Cervical Effacement Percentage: 100 station: 0 Uterine Contraction Pattern: Regular Uterine Tone Measurement Phase: Resting Uterine Contraction Intensity: Moderate Extremities: normal - Labs Labs: Abnormal Labs 12/21/21 00:05 MCH 26 L [place] % (Auto) 7.6 H Seg Neutrophils % 73.6 H Seg Neutrophils # 8.0 H Laboratory Results - last 24 hr 12/21/21 12/21/21 12/21/21 00:05 00:05 00:05 WBC 10.8 RBC 4.41 Hgb 11.4 Hct 35.6 MCV 81 MCH 26 L MCHC 32 RDW 15.2 Plt Count 240 Lymph % (Auto) 18.1 [place] % (Auto) 7.6 H Eos % (Auto) 0.5 Baso % (Auto) 0.2 Lymph # (Auto) 2.0 [place] # (Auto) 0.8 Eos # (Auto) 0.1 Baso # (Auto) 0.0 Seg Neutrophils % 73.6 H Seg Neutrophils # 8.0 H Urine Color Urine Turbidity Urine pH Ur Specific [place] Urine Protein Urine Glucose (UA) Urine Ketones Urine Blood Urine Nitrite Urine Bilirubin Urine Urobilinogen Ur Leukocyte Esterase Urine WBC (Auto) Urine RBC (Auto) U Epithel Cells (Auto) Urine Bacteria (Auto) Urine Opiates Screen Urine Methadone Screen Ur Barbiturates Screen Ur Phencyclidine Scrn Ur Amphetamines Screen U Benzodiazepines Scrn Urine Cocaine Screen U Marijuana (THC) Screen Drugs of Abuse Note Syphilis IgG/IgM Ab Nonreactive SARS-CoV-2 (PCR) Hep Bs Antigen Non-reactive Hepatitis C Antibody Non-reactive HIV 1&2 Antibody Rapid Non react HIV P24 Antigen Non react Rubella IgG Antibody Immune Blood Type Antibody Screen 12/21/21 12/21/21 12/21/21 00:05 00:23 00:23 WBC RBC Hgb Hct MCV MCH MCHC RDW Plt Count Lymph % (Auto) [place] % (Auto) Eos % (Auto) Baso % (Auto) Lymph # (Auto) [place] # (Auto) Eos # (Auto) Baso # (Auto) Seg Neutrophils % Seg Neutrophils # Urine Color Yellow Urine Turbidity Slightly-cloudy Urine pH 6.0 Ur Specific [place] 1.009 Urine Protein <15 mg/dl Urine Glucose (UA) Neg Urine Ketones Tr Urine Blood Neg Urine Nitrite Neg Urine Bilirubin Neg Urine Urobilinogen 2.0 Ur Leukocyte Esterase Mod Urine WBC (Auto) 5.0 Urine RBC (Auto) < 1.0 U Epithel Cells (Auto) 7.0 Urine Bacteria (Auto) 1+ Urine Opiates Screen Presumptive negative Urine Methadone Screen Presumptive negative Ur Barbiturates Screen Presumptive negative Ur Phencyclidine Scrn Presumptive negative Ur Amphetamines Screen Presumptive negative U Benzodiazepines Scrn Presumptive negative Urine Cocaine Screen Presumptive negative U Marijuana (THC) Screen Presumptive negative Drugs of Abuse Note Disclamer Syphilis IgG/IgM Ab SARS-CoV-2 (PCR) Hep Bs Antigen Hepatitis C Antibody HIV 1&2 Antibody Rapid HIV P24 Antigen Rubella IgG Antibody Blood Type O POSITIVE Antibody Screen Negative 12/22/21 10:35 WBC RBC Hgb Hct MCV MCH MCHC RDW Plt Count Lymph % (Auto) [place] % (Auto) Eos % (Auto) Baso % (Auto) Lymph # (Auto) [place] # (Auto) Eos # (Auto) Baso # (Auto) Seg Neutrophils % Seg Neutrophils # Urine Color Urine Turbidity Urine pH Ur Specific [place] Urine Protein Urine Glucose (UA) Urine Ketones Urine Blood Urine Nitrite Urine Bilirubin Urine Urobilinogen Ur Leukocyte Esterase Urine WBC (Auto) Urine RBC (Auto) U Epithel Cells (Auto) Urine Bacteria (Auto) Urine Opiates Screen Urine Methadone Screen Ur Barbiturates Screen Ur Phencyclidine Scrn Ur Amphetamines Screen U Benzodiazepines Scrn Urine Cocaine Screen U Marijuana (THC) Screen Drugs of Abuse Note Syphilis IgG/IgM Ab SARS-CoV-2 (PCR) Negative Hep Bs Antigen Hepatitis C Antibody HIV 1&2 Antibody Rapid HIV P24 Antigen Rubella IgG Antibody Blood Type Antibody Screen
[2021-12-22] MEDS ORDERED: METOCLOPRAMIDE 10 MG/2 ML INJ IV ONE (23:17)
[2021-12-22] MEDS ORDERED: BICITRA ORAL LIQD 30ML PO ONE (23:17)
[2021-12-22] MEDS ORDERED: FAMOTIDINE 20 MG/2 ML INJ IV ONE (23:17)
[2021-12-22] MEDS ORDERED: LACTATED RINGERS 1,000 ML IV SCH (23:30)
--- NOTE | 2021-12-22 23:36 | Event Note ---
Date: 12/22/21 Patient now desires to proceed with C/S
[2021-12-22] MEDS ORDERED: BUPIVACAINE/PF (0.25%) 2.5 MG/ML 30 ML VIAL INFILTRATI ONE (23:44)
[2021-12-22] MEDS ORDERED: dexAMETHasone 20 MG/5 ML VIAL ONE (23:44)
[2021-12-22] MEDS ORDERED: LIDOCAINE MPF (2%) 20 MG/1 ML VIAL 5 ML ONE (23:44)
[2021-12-22] MEDS ORDERED: KETOROLAC 30 MG/1 ML INJ ONE (23:44)
[2021-12-22] MEDS ORDERED: SODIUM BICARB 8.4% 50 MEQ/50 ML VIAL IV ONE (23:44)
[2021-12-22] MEDS ORDERED: ceFAZolin/Water 2 GM/20 ML 2 GM/20 ML SYRINGE IV NR (23:45)
[2021-12-23] MEDS ORDERED: ceFAZolin/STERILE WATER 2 GM/20 ML SYRINGE IV ONE (00:05)
[2021-12-23] MEDS ORDERED: WATER FOR IRRIG STERILE 1,500 ML BOTTLE IR ONE (00:10)
[2021-12-23] MEDS ORDERED: SODIUM CHLORIDE 0.9% IRR 1,500 ML BOTTLE IR ONE (00:10)
[2021-12-23] MEDS ORDERED: LACTATED RINGERS 1,000 ML ONE (00:34)
--- NOTE | 2021-12-23 01:02 | Operative Report ---
Operative Report Operative Report: Date of operation: 12/23/2021 Pre-operative diagnosis: 1. Intrauterine at 41 weeks gestational age 2. Limited care 3. Active labor 4. BMI 33.3 kg/m2 5. Failure to descend 6. Light meconium Post-operative diagnosis: 1. Intrauterine at 41 weeks gestational age 2. Limited care 3. Active labor 4. BMI 33.3 kg/m2 5. Failure to descend 6. Light meconium Procedure name(s): Primary low transverse uterine incision Surgeon: Paris Ashby MD Extrusion Die Repair Manager: Sri Brown CNM Anesthesia: Epidural EBL: 534 mL Urine output: 50 mL of clear urine out at the end of the procedure Fluids: Thousand mL Findings: Liveborn male weight 8 Lbs. 2 oz. Apgars of 8 and 9 at one and 5 minutes Indications: This is a 21-year-old female who presented in active labor. Limited care in the [facility]. Patient progressed to 9 cm with no descent. Patient desired to proceed with delivery. Procedure: Patient was taking to the operating room. Epidural anesthesia was bolused. Patient was then prepped and draped in the usual sterile fashion Timeout was performed. Once an appropriate level of anesthesia was noted, a Pfannenstiel incision was made and extended the fascia which was incised and extended lateral direction. The overlying fascia was sharply dissected away from the underlying rectus muscles in the superior inferior direction. The midline was entered bluntly. Bladder blade was placed. Vesicouterine fold was incised with blunt dissection bladder flap was created. A transverse incision was made in the lower uterine segment and extended superolateral direction with finger fractionation. Light meconium stained fluid was noted. Infant was delivered from the cephalic ROT position, with spontaneous cry and excellent tone. Mouth and nose bulb suctioned. Cord was doubly clamped and cut was given to the resuscitation team present. Placenta was delivered. The uterus was exteriorized and cleaned of any further placental tissue and products of conception. Uterine incision was approximated using 0 Vicryl in a running interlocking stitch followed by further suture of 0 Vicryl in imbricating fashion. When hemostasis was noted the uterus was allowed back in the pelvic cavity. Pelvis was irrigated with warm normal saline. Once hemostasis was noted the rectus muscles were approximated using 0 Vicryl interrupted simple stitches 3. Once hemostasis was noted the fascia was approximated using 0 Vicryl simple running stitch. The incision was irrigated with warm saline, once hemostasis as noted, the subcuticular adipose tissue was reapproximated using 3-0 Vicryl in a simple running fashion. Skin was approximated using 4-0 Vicryl on a Chente needle in a subcuticular manner. Counts were correct x3. Patient tolerated the procedure well, she was taken to recovery room in stable condition.
[2021-12-23] MEDS ORDERED: SENNOSIDES 8.6 MG TAB PO PRN (03:03)
[2021-12-23] MEDS ORDERED: LANOLIN/ZINC/DIMETHICONE (LANSINOH) 7 GM TP PRN (03:03)
[2021-12-23] MEDS ORDERED: D5W/LACTATED RINGERS 1,000 ML IV SCH (03:03)
[2021-12-23] MEDS ORDERED: OXYTOCIN DRIP 30 UNITS/500 ML BAG IV SCH (03:03)
[2021-12-23] MEDS ORDERED: HYDROCORTISONE 25 MG RECTAL SUPP PR PRN (03:03)
[2021-12-23] MEDS ORDERED: PROMETHAZINE 25 MG RECT SUPP PR PRN (03:03)
[2021-12-23] MEDS ORDERED: MAGNESIUM HYDROXIDE (MOM) ORAL LIQD UDC PO PRN (03:03)
[2021-12-23] MEDS ORDERED: MORPHINE 4 MG/1 ML INJ IV PRN (03:03)
[2021-12-23] MEDS ORDERED: WITCH HAZEL/ GLYCERIN PAD TP PRN (03:03)
[2021-12-23] MEDS ORDERED: ONDANSETRON 4 MG/2 ML INJ IV PRN (03:03)
[2021-12-23] MEDS ORDERED: NALOXONE 0.4 MG/1 ML INJ IV PRN (03:03)
[2021-12-23] MEDS ORDERED: SIMETHICONE 80 MG CHEW TAB PO PRN (03:03)
[2021-12-23] MEDS ORDERED: ACETAMINOPHEN 500 MG TAB PO PRN (05:00)
--- NOTE | 2021-12-23 08:29 | Progress Note ---
Assessment and Plan H&H ordered for later today, VSSAF Pt in bed baby, voices no concerns. Plans to breast and bottle feed. Doesn't desires control at this time. Incision dry and intact, Uterus firm and normal lochia, and VSSAF stable. MINDY Wells CNM - Patient Problems (1) delivery delivered Current Visit: Yes Status: Acute Plan to address problem: Continue postop pathway Advance activity and diet as tolerated Subjective - Subjective Date of service: 12/23/21 Principal diagnosis: postop day #0 s/p primary c/s Patient reports: appetite normal, pain well controlled : doing well Objective - Vital Signs Latest vital signs: Vital Signs Temp Pulse Resp BP BP Pulse Ox Pulse Ox 12/23/21 07:22 92 H 20 119/81 99 12/23/21 03:39 97 12/23/21 03:06 98.1 F 91 H 19 123/81 97 12/23/21 02:01 98.9 F 81 24 126/85 100 12/23/21 01:40 81 21 121/84 100 12/23/21 01:25 93 H 19 116/80 100 12/23/21 01:10 90 24 118/73 100 12/23/21 01:05 93 H 23 115/75 99 12/22/21 23:40 120 H 99 12/22/21 23:35 129 H 100 12/22/21 23:30 134 H 100 12/22/21 23:25 131 H 100 12/22/21 23:20 127 H 100 12/22/21 23:15 123 H 100 12/22/21 23:10 123 H 100 12/22/21 23:06 132 H 84 12/22/21 23:04 125 H 98 12/22/21 22:59 124 H 99 12/22/21 22:54 68 90 12/22/21 22:49 114 H 100 12/22/21 22:44 117 H 99 12/22/21 22:41 117 H 106/59 12/22/21 22:39 116 H 99 12/22/21 22:34 116 H 99 12/22/21 22:29 116 H 100 12/22/21 22:24 121 H 99 12/22/21 22:19 124 H 100 03/13/22 22:14 122 H 100 12/22/21 22:09 118 H 100 12/22/21 22:04 156 H 93 12/22/21 21:59 108 H 99 12/22/21 21:54 111 H 100 12/22/21 21:52 113 H 120/61 12/22/21 21:51 98.2 F 12/22/21 21:49 114 H 98 12/22/21 21:44 114 H 100 12/22/21 21:39 111 H 100 12/22/21 21:34 115 H 99 12/22/21 21:31 118 H 121/74 12/22/21 21:29 118 H 99 12/22/21 21:24 112 H 100 12/22/21 21:19 111 H 100 12/22/21 21:14 103 H 100 12/22/21 21:12 107 H 122/65 93 12/22/21 21:09 91 H 99 12/22/21 21:04 87 99 12/22/21 20:59 91 H 100 12/22/21 20:54 86 99 12/22/21 20:52 93 H 105/56 12/22/21 20:49 89 99 12/22/21 20:44 92 H 99 12/22/21 20:39 105 H 99 12/22/21 20:34 110 H 99 12/22/21 20:31 94 H 111/64 12/22/21 20:29 96 H 100 12/22/21 20:24 98 H 100 12/22/21 20:19 99 H 100 12/22/21 20:14 100 H 100 12/22/21 20:09 100 H 100 12/22/21 20:04 95 H 100 12/22/21 20:01 94 H 108/58 12/22/21 19:59 103 H 100 12/22/21 19:54 95 H 100 12/22/21 19:49 110 H 98 12/22/21 19:45 96 H 105/55 12/22/21 19:44 100 H 99 12/22/21 19:39 101 H 99 12/22/21 19:34 95 H 100 12/22/21 19:31 94 H 103/59 12/22/21 19:29 91 H 100 12/22/21 19:24 102 H 100 12/22/21 19:19 103 H 100 12/22/21 19:18 100 12/22/21 19:14 101 H 100 12/22/21 19:13 98.4 F 18 10 L 12/22/21 19:12 102 H 111/63 12/22/21 19:09 105 H 100 12/22/21 19:06 99 H 106/60 12/22/21 19:04 106 H 99 12/22/21 19:02 101 H 106/63 12/22/21 18:59 108 H 100 12/22/21 18:57 99 H 108/55 12/22/21 18:54 100 H 100 12/22/21 18:52 98 H 108/59 12/22/21 18:49 97 H 100 12/22/21 18:48 95 H 108/59 12/22/21 18:44 95 H 100 12/22/21 18:41 97 H 104/54 12/22/21 18:39 95 H 100 12/22/21 18:37 93 H 108/57 12/22/21 18:34 89 100 12/22/21 18:31 95 H 103/58 12/22/21 18:29 97 H 99 12/22/21 18:28 107 H 94/54 12/22/21 18:26 91 H 101/54 12/22/21 18:24 92 H 100 12/22/21 18:23 90 105/55 12/22/21 18:20 91 H 102/52 12/22/21 18:19 89 100 12/22/21 18:17 88 99/53 12/22/21 18:14 93 H 107/58 100 12/22/21 18:11 91 H 109/59 12/22/21 18:09 94 H 100 12/22/21 18:08 93 H 109/56 12/22/21 18:05 95 H 115/69 12/22/21 18:04 96 H 100 12/22/21 18:02 97 H 123/65 12/22/21 17:59 99 H 125/71 98 12/22/21 17:54 100 H 98 12/22/21 17:51 98 H 130/71 12/22/21 17:49 99 H 99 12/22/21 17:44 95 H 99 12/22/21 17:39 106 H 99 12/22/21 17:34 90 98 03/13/22 17:29 102 H 99 12/22/21 17:24 88 99 12/22/21 17:21 100 H 128/72 12/22/21 17:19 91 H 100 12/22/21 17:14 95 H 100 12/22/21 17:09 95 H 99 12/22/21 17:04 93 H 100 12/22/21 16:59 96 H 100 12/22/21 16:54 92 H 97 12/22/21 16:51 89 113/60 12/22/21 16:49 106 H 99 12/22/21 16:44 94 H 99 12/22/21 16:39 101 H 98 12/22/21 16:34 92 H 99 12/22/21 16:29 97 H 98 12/22/21 16:24 100 H 99 12/22/21 16:21 85 119/66 12/22/21 16:19 90 100 12/22/21 16:14 90 99 12/22/21 16:09 92 H 99 12/22/21 16:04 90 100 12/22/21 15:56 89 100 12/22/21 15:51 104 H 119/69 100 12/22/21 15:46 98 H 99 12/22/21 15:41 91 H 98 12/22/21 15:36 94 H 98 12/22/21 15:31 89 98 12/22/21 15:26 85 98 12/22/21 15:21 85 98 12/22/21 15:20 83 121/69 12/22/21 15:16 85 99 12/22/21 15:11 85 99 12/22/21 15:06 85 99 12/22/21 15:01 93 H 99 12/22/21 14:56 85 98 12/22/21 14:51 85 119/65 98 12/22/21 14:46 83 99 12/22/21 14:41 83 98 12/22/21 14:36 85 98 12/22/21 14:31 79 98 12/22/21 14:26 82 99 12/22/21 14:23 18 12/22/21 14:21 82 124/66 99 12/22/21 14:16 85 100 12/22/21 14:11 91 H 99 12/22/21 14:06 87 100 12/22/21 14:01 85 100 12/22/21 14:00 98.5 F 12/22/21 13:56 89 100 12/22/21 13:51 87 99 03 13:50 90 131/74 03 13:46 88 99 12/22/21 13:41 84 99 12/22/21 13:36 89 100 12/22/21 13:31 96 H 100 12/22/21 13:26 80 100 12/22/21 13:21 91 H 130/78 98 12/22/21 13:16 85 99 12/22/21 13:11 89 99 12/22/21 13:06 89 99 12/22/21 13:01 91 H 99 12/22/21 12:56 81 100 12/22/21 12:52 86 118/64 12/22/21 12:51 86 99 12/22/21 12:46 94 H 99 12/22/21 12:41 87 99 12/22/21 12:36 84 100 12/22/21 12:31 96 H 100 12/22/21 12:26 85 99 12/22/21 12:23 79 118/73 12/22/21 12:21 87 99 12/22/21 12:16 94 H 99 12/22/21 12:11 84 99 12/22/21 12:06 83 99 12/22/21 12:01 85 99 12/22/21 11:56 87 98 12/22/21 11:51 98 H 99 12/22/21 11:50 83 120/69 12/22/21 11:46 88 99 12/22/21 11:41 84 98 12/22/21 11:36 86 98 12/22/21 11:31 87 98 12/22/21 11:26 85 98 12/22/21 11:21 85 126/74 99 12/22/21 11:16 86 98 12/22/21 11:11 84 99 12/22/21 11:06 84 98 12/22/21 11:01 86 98 12/22/21 10:56 85 97 12/22/21 10:52 88 124/86 12/22/21 10:51 89 100 12/22/21 10:46 96 H 100 12/22/21 10:41 94 H 98 12/22/21 10:36 94 H 99 12/22/21 10:31 90 99 12/22/21 10:26 88 99 12/22/21 10:22 82 138/73 12/22/21 10:21 93 H 98 12/22/21 10:16 85 98 12/22/21 10:11 87 100 12/22/21 10:06 100 H 99 12/22/21 10:01 85 100 12/22/21 09:56 88 100 12/22/21 09:51 83 100 12/22/21 09:46 84 99 12/22/21 09:41 81 99 12/22/21 09:36 87 99 12/22/21 09:31 99 H 98 12/22/21 09:26 93 H 100 12/22/21 09:01 87 100 12/22/21 09:00 98.5 F 12/22/21 08:56 89 99 12/22/21 08:51 89 100 12/22/21 08:46 87 99 12/22/21 08:41 84 99 12/22/21 08:36 86 98 12/22/21 08:31 81 98 Intake and Output 12/22/21 12/23/21 12/23/21 23:59 07:59 15:59 Intake Total 938.95 1400 Output Total 100 3350 Balance 838.95 -1950 Intake: IV 938.95 1400 Lactated Ringers 1,000 ml 868.75 @ 125 mls/hr IV DIRECT KEVIN Rx#:[id number] PITOCin/NS 30 UNIT/500ML 70.2 30 units In 500 ml @ 2 mls/hr IV TITR KEVIN Rx#: [id number] Output: Urine 100 3350 Indwelling Catheter 100 900 Uretheral (Solares) 1200 Other: Total, Output Amount 100 900 Estimated Blood Loss 534 - Exam Breasts: Present: normal Abdomen: Present: normal appearance, soft Uterus: Present: normal, firm Extremities: Present: normal Incision: Present: normal, dry, intact Comments: surgical glue at site noted.
[2021-12-23] MEDS: KETOROLAC 30 MG/1 ML INJ IV SCH ×2 (09:06→18:17)
[2021-12-23] MEDS: ceFAZolin/NS 1 GM/50 ML 1 GM/50 ML BAG IV SCH ×2 (09:07→18:18)
[2021-12-23] MEDS: MORPHINE 2 MG/1 ML INJ IV PRN ×2 (10:26→22:43)
--- NOTE | 2021-12-23 10:32 | Post Anesthesia Evaluation ---
- Post Anesthesia Evaluation Patient Participated: Yes Airway Patent: Yes Stable Respiratory Function: Yes Nausea/Vomiting: No Temp > 96.8F: Yes Pain Manageable: Yes Adequeate Hydration: Yes Anesthesia Complications: No Block Receding Appropriately: Yes Patient on Ventilator: No
[2021-12-23 12:50] LABS: Hemoglobin 9.2 gm/dl (10.1-14.3)
[2021-12-24] MEDS ORDERED: IBUPROFEN 600 MG TAB PO PRN (00:53)
[2021-12-24] MEDS ORDERED: IBUPROFEN 800 MG TAB PO PRN (00:53)
[2021-12-24] MEDS: KETOROLAC 30 MG/1 ML INJ IV SCH (01:21)
[2021-12-24] MEDS ORDERED: TETANUS,DIPH,PERTUSS(ACELL) VACCINE 0.5 ML SYRINGE IM ONE (06:00)
[2021-12-24] MEDS: oxyCODONE /ACETAMINOPHEN 5-325MG TAB PO PRN ×2 (09:20→20:07)
--- NOTE | 2021-12-24 17:11 | Progress Note ---
Assessment and Plan A: 21 y.o. s/p primary . POD #1. - Patient Problems (1) delivery delivered Current Visit: Yes Status: Acute Plan to address problem: Continue with care. Encourage ambulation. Advance diet as toleration. Encourage I.S. use. Anticipate discharge home on 12/25/2021. Subjective - Subjective Date of service: 12/24/21 Principal diagnosis: postop day #1 s/p primary c/s Interval history: Discussed with patient expectations after a . Encouraged her to walk around. Per RN she has just being laying in bed. Pt states that she will get up to walk and she has been walking around in the room. Patient reports: appetite normal, voiding normally, pain well controlled, flatus, ambulating normally : doing well Objective - Vital Signs Latest vital signs: Vital Signs Temp Pulse Resp BP BP Pulse Ox Pulse Ox 12/24/21 16:45 97.9 F 12/24/21 09:25 100 12/24/21 08:56 99.8 F H 102 H 20 117/78 99 12/24/21 01:21 20 12/24/21 00:10 98.7 F 94 H 18 106/65 100 12/23/21 22:43 20 12/23/21 20:45 98.3 F 87 18 102/58 100 12/23/21 20:05 98 12/23/21 17:12 98.5 F 83 18 120/69 99 Intake and Output 12/24/21 12/24/21 12/24/21 06:59 14:59 22:59 Intake Total 300 320 Output Total 1600 600 Balance -1300 -280 Intake: Oral 320 Intake, Free Water 300 Output: Urine 1600 600 Void 1600 600 Other: Total, Intake Amount 320 Total, Output Amount 800 600 # Voids Void 2 - Exam Breasts: Present: deferred Cardiovascular: Present: Regular rate Lungs: Present: Normal air movement Abdomen: Present: normal appearance, soft Vulva: both: normal Uterus: Present: normal, firm Extremities: Present: normal Incision: Present: normal, dry, intact, other (No s/sx of infection and no drainage noted. )
--- NOTE | 2021-12-25 08:31 | Discharge Summary ---
Providers - Providers Date of Admission: 12/22/21 01:02 Date of discharge: 12/25/21 Attending physician: ELVIRA CHERRY 12/23/21 03:03 Consult to Pallet Rectifier [CONS] Routine Reason For Exam: Primary care physician: ELVIRA CHERRY Hospitalization Reason for admission: Labor Condition: Good Pertinent studies: postop H&H 9.2/29.0 - asymptomatic anemia d/t acute blood loss Procedures: primary c/s Hospital course: uncomplicated c/s and postop course Disposition: 01 HOME / SELF CARE / HOMELESS Final Discharge Diagnosis (Prints w/discharge instructions): c/s delivery Time spent for discharge: 20 - Discharge Diagnoses (1) delivery delivered Status: Acute Core Measure Documentation - Palliative Care Palliative Care/ Comfort Measures: Not Applicable - Core Measures Any of the following diagnoses?: none Exam - Physical Exam Narrative exam: lochia scant, fundus firm, incision D&I - Constitutional Vitals: Temp Pulse Resp BP Pulse Ox 98.7 F 78 18 121/75 100 12/25/21 07:44 12/25/21 07:44 12/25/21 07:44 12/25/21 07:44 12/25/21 07:44 General appearance: Present: no acute distress, well-nourished - EENT Eyes: Present: PERRL ENT: hearing intact, clear oral mucosa - Neck Neck: Present: supple, normal ROM - Respiratory Respiratory effort: normal Respiratory: bilateral: CTA - Cardiovascular Heart Sounds: Present: S1 & S2. Absent: rub, click - Extremities Extremities: pulses symmetrical, No edema Peripheral Pulses: within normal limits - Abdominal General gastrointestinal: Present: soft, non-tender, non-distended, normal bowel sounds Female genitourinary: Present: normal - Integumentary Integumentary: Present: clear, warm, dry - Musculoskeletal Musculoskeletal: gait normal, strength equal bilaterally - Psychiatric Psychiatric: appropriate mood/affect, intact judgment & insight - Neurologic Neurologic: CNII-XII intact, moves all extremities Plan Activity: advance as tolerated Diet: regular Wound: open to air, keep clean and dry Care Plan Goals: [] Refer to [facility]'s [facility] Booklet Call your doctor immediately for: * Fever > 100.5 * Heavy vaginal bleeding ( >1 pad per hour) * Severe persistent headache * Shortness of breath * Reddened, hot, painful area to leg or breast * Drainage or odor from incision. * Keep incision clean and dry at all times and follow doctor's instructions regarding bathing/showering CALL OFFICE TO SCHEDULE FOLLOW-UP APPOINTMENT. Follow up with: ELVIRA CHERRY MD [Primary Care Provider] - 7 Days (Congratulations! Please call [phone] to schedule your son's circumcision in 1 week and your visit in 6 weeks. Bring EMLA cream to your son's appointment and wait for instructions. Call for any questions or concerns. ) Forms: [facility] Discharge Summary Prescriptions: Docusate Sodium [Colace] 100 mg PO BID PRN #60 capsule PRN Reason: Constipation Lidocain2.5%/Prilocai2.5% [Emla] 5 gm TP ONCE #1 tube Ibuprofen [Motrin 800 MG tab] 800 mg PO TID PRN #30 tablet PRN Reason: Pain oxyCODONE /ACETAMINOPHEN [Percocet 5/325 mg] 1 - 2 tab PO Q6HR PRN #14 tablet PRN Reason: Pain
[2021-12-25] MEDS: oxyCODONE /ACETAMINOPHEN 5-325MG TAB PO PRN (10:49)
[2021-12-25 11:24] VITALS: BP 120/71
== END 2021-12-25 12:47 | disposition home or self-care (01) | DRG 787 ==
LOC: TRG 22:18 → APU 22:20 → LD 12-22 00:58 → TRG 12-22 01:02 → APU 12-23 00:05 → OB 12-23 02:56
PROVIDERS: ADMIT Obstetrics & Gynecology; ATTEND Obstetrics & Gynecology
PROC: 10D00Z1 Extraction of Products of Conception, Low, Open Approach (ICD-10-PCS; principal; 2021-12-23)
PROC: 3E0234Z Introduction of Serum, Toxoid and Vaccine into Muscle, Percutaneous Approach (ICD-10-PCS; 2021-12-24)
DX: O77.0 Labor and delivery complicated by meconium in amniotic fluid (principal); D62 Acute posthemorrhagic anemia; Z3A.40 40 weeks gestation of pregnancy; Z37.0 Single live birth; O48.0 Post-term pregnancy; Z20.822 Contact with and (suspected) exposure to COVID-19; Z82.49 Family history of ischemic heart disease and other diseases of the circulatory system; O62.0 Primary inadequate contractions; O90.81 Anemia of the puerperium; Z23 Encounter for immunization
CPT/HCPCS: 36415; 76816; 80307; 81001; 85014; 85018; 85025; 86592; 86706; 86762; 86803; 86850; 86900; 86901; 87806; 99211; G0378; J3490; G0463; J0290; J0595; J0690; J1100; J1885; J2270; J2590; J2765; J3010; J7120; U0003